=== PATIENT | male | born 1930 | race Caucasian/White ===

== ENCOUNTER 2016-08-28 13:46 | Emergency (ER) | payer OTHER ==
[~2016-08-28] VITALS: Ht 170.2 cm; Wt 84.0 kg
[~2016-08-28 13:46] MED LIST: AMOX500T PO; ATOR20TA PO; HYDR-3533 PO; METO25 PO; PRIN5TAB PO
[2016-08-28 13:53] VITALS: BP 145/77; PULSE 62; RESP 16; TEMP 97.6; O2SAT 95
[2016-08-28] MEDS ORDERED: METO50TA11 PO (16:01)
[2016-08-28] MEDS ORDERED: FISHCAP4 PO (16:01)
[2016-08-28] MEDS ORDERED: LISI-519 PO (16:01)
[2016-08-28] MEDS ORDERED: DICL1CAP4 PO (16:01)
[2016-08-28] MEDS ORDERED: ATOR20TA15 PO (16:01)
--- NOTE | 2016-08-28 16:35 | PD ---
HPI Chief Complaint: Musculoskeletal Complaint Time Seen by Provider: 16:35 Travel History International Travel<30 days: No Contact w/Intl Traveler<30days: No Traveled to known affect area: No History of Present Illness HPI 86-year-old male presents to the ED for evaluation of 4 day history of bilateral thigh pain. Onset after doing yard work 5 days ago. Right greater than left. Patient endorses pain with rising to a standing position. Patient denies numbness, tingling, weakness, limitations to range of motion of the lower extremities. 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 He states at that time his dose was changed from 80 mg to 20 mg. He states that he discontinue the medication altogether when the symptoms began. Treated today with a single dose of naproxen and icy hot with some improvement of his symptoms. Primary care is Marco Johnson, follow-up appointment scheduled early next week. PFSH Past Medical History High Cholesterol: Yes Coronary Artery Disease: Yes Diminished Hearing: No Genitourinary: Yes (HEMORRHOIDS) Hypertension: Yes Immunizations Current: No Past Surgical History Cardiac Surgery: Yes (ANGIOPLASTY, STENT ') Social History Alcohol Use: Yes (DAILY) Tobacco Use: No Substance Use: No Allergies-Medications (Allergen,Severity, Reaction): Coded Allergies: No Known Allergies (Verified , 08/28/16) Reported Meds & Prescriptions Reported Meds & Active Scripts Active Flexeril (Cyclobenzaprine HCl) 5 Mg Tab 5 Mg PO TID Naprosyn (Naproxen) 500 Mg Tab 500 Mg PO BID Reported Fish Oil + D3 (Fish Oil-Cholecalciferol) 1,200-1,000 Mg-Unit Cap 1 Cap PO DAILY Atorvastatin (Atorvastatin Calcium) 20 Mg Tab 20 Mg PO HS Zorvolex (Diclofenac) 35 Mg Cap 75 Mg PO BID Metoprolol Succinate ER 24 HR (Metoprolol Succinate) 50 Mg Tab 50 Mg PO DAILY Lisinopril 5 Mg Tab 5 Mg PO DAILY Review of Systems Except as stated in HPI: all other systems reviewed are Neg Physical Exam Narrative GENERAL: Well-nourished, well-developed white male in no acute distress. SKIN: Warm and dry. HEAD: Normocephalic. EYES: No scleral icterus. No injection or drainage. NECK: Supple, trachea midline. No JVD or lymphadenopathy. CARDIOVASCULAR: Regular rate and rhythm without murmurs, gallops, or rubs. 2+ DP and radial pulses bilaterally. RESPIRATORY: Breath sounds equal bilaterally. No accessory muscle use. GASTROINTESTINAL: Abdomen soft, non-tender, nondistended. MUSCULOSKELETAL: No cyanosis, or edema. No tenderness to palpation of bilateral quadriceps or hip flexors. 5/5 strength in bilateral lower extremities. BACK: Nontender without obvious deformity. No CVA tenderness. Data Data Last Documented VS Vital Signs Date Time Temp Pulse Resp B/P Pulse Ox O2 Delivery O2 Flow Rate FiO2 08/28/16 13:53 97.6 62 16 145/77 95 MDM Medical Decision Making Medical Screen Exam Complete: Yes Emergency Medical Condition: Yes Differential Diagnosis Medication side effect versus myopathy versus muscle strain versus muscle spasm versus overuse injury versus other Narrative Course 86-year-old male presents to the ED for evaluation of 4 day history of bilateral thigh pain. Onset after doing yard work 5 days ago. Right greater than left. Patient endorses pain with rising to a standing position. Patient denies numbness, tingling, weakness, limitations to range of motion of the lower extremities. 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 He states at that time his dose was changed from 80 mg to 20 mg. He states that he discontinue the medication altogether when the symptoms began. Treated today with a single dose of naproxen and icy hot with some improvement of his symptoms. Primary care is Marco Johnson, follow-up appointment scheduled early next week. Vitals reviewed. Physical exam reveals a well-appearing white male in no acute distress. Bilateral lower extremity exam reveals no tenderness to palpation, deficits of strength or loss of sensation. Abduction of the right hip flexor and left hip flexor elicits pain. This may be myopathy related to the atorvastatin, patient has discontinued use of the medication. I'll treat for muscle strain with anti-inflammatories and muscle relaxers. Patient is instructed to take the medication as prescribed, avoid driving while taking muscle relaxers, follow up with Dr. Johnson as planned. He indicated understanding of instructions and was amenable to plan of care. This patient is stable discharged home. Diagnosis Primary Impression: Muscle strain of lower extremity Qualified Code: S86.919A - Muscle strain of lower extremity, unspecified laterality, initial encounter Referrals: Primary Care Physician Patient Instructions: General Instructions, Muscle Strain (ED) Additional Instructions: Rest, hydrate. Take naproxen twice a day as prescribed. Take Flexeril up to 3 times a day as needed for muscle spasm. Do not drive while taking Flexeril. Return to normal, gentle activity as tolerated. No running, jumping activities for the next few weeks. Follow up with Dr. Johnson this week as planned. Return to the ED for any urgent or emergent medical condition. Med/Other Pt SpecificInfo: Prescription(s) given Scripts Cyclobenzaprine (Flexeril)5 Mg Tab5 Mg PO TID #12 TAB Ref 0 Prov:Fela Mendez DO 08/28/16 Naproxen (Naprosyn)500 Mg Bka024 Mg PO BID #10 TAB Ref 0 Prov:Fela Mendez DO 08/28/16 Disposition: 01 DISCHARGE HOME Condition: Stable Britney Perera Aug 28, 2016 16:35
[2016-08-28] MEDS ORDERED: CYCL5TAB PO (16:49)
[2016-08-28] MEDS ORDERED: NAPR500 PO (16:49)
== END 2016-08-28 17:00 | disposition home or self-care (01) ==
LOC: PHED 13:46 → PHEFT 17:00
DX: S86.919A Strain of unspecified muscle(s) and tendon(s) at lower leg level, unspecified leg, initial encounter (principal); E78.00 Pure hypercholesterolemia, unspecified; I25.10 Atherosclerotic heart disease of native coronary artery without angina pectoris; I10 Essential (primary) hypertension; F10.20 Alcohol dependence, uncomplicated; X58.XXXA Exposure to other specified factors, initial encounter; Y93.H2 Activity, gardening and landscaping
CPT/HCPCS: 99283

== ENCOUNTER 2017-03-22 16:37 | Emergency (ER) | payer OTHER ==
[~2017-03-22] VITALS: Ht 170.2 cm; Wt 85.4 kg
[~2017-03-22 16:37] MED LIST changes: -AMOX500T PO; -ATOR20TA PO; +ATOR20TA15 PO; +CYCL5TAB PO; +DICL1CAP4 PO; +FISHCAP4 PO; -HYDR-3533 PO; +LISI-519 PO; -METO25 PO; +METO50TA11 PO; +NAPR500 PO; -PRIN5TAB PO
[2017-03-22 16:45] VITALS: BP 208/77; PULSE 60; RESP 16; TEMP 97.7; O2SAT 96
[2017-03-22] MEDS ORDERED: DICL75TA PO (17:02)
[2017-03-22] MEDS ORDERED: METO25TA3 PO (17:02)
[2017-03-22] MEDS ORDERED: LISI-515 PO (17:02)
[2017-03-22] MEDS ORDERED: ASPI81CH CHEW (17:02)
[2017-03-22] MEDS ORDERED: GEMF600T PO (17:02)
[2017-03-22] MEDS ORDERED: MECL12.574 PO (17:02)
[2017-03-22] MEDS ORDERED: SODIUM CHLORID 0.9% 500 ML INJ 500 ML IV ONE (17:15)
[2017-03-22] MEDS ORDERED: SODIUM CHLORIDE 0.9% FLUSH 10 ML FLUSH IVF PRN (17:15)
[2017-03-22 17:17] VITALS: BP 187/76; PULSE 76; RESP 18
--- NOTE | 2017-03-22 18:05 | RADRPT ---
EXAM DATE/TIME: 03/22/2017 17:40 [facility] COMPARISON: No previous studies available for comparison. INDICATIONS : Lower extremity swelling for 1 week. MEDICAL HISTORY : Cardiovascular disease. SURGICAL HISTORY : Coronary artery stent. ENCOUNTER: Initial ACUITY: 1 week PAIN SCORE: 0/10 LOCATION: Bilateral chest FINDINGS: A single view of the chest demonstrates the lungs to be symmetrically aerated without evidence of mas s, infiltrate or effusion. The cardiomediastinal contours are unremarkable. Osseous structures are intact. CONCLUSION: 1. No acute cardiopulmonary disease. Braulio Blanchard MD on March 22, 2017 at 18:04 Board Certified Radiologist. This report was verified electronically.
[2017-03-22 18:21] VITALS: BP 199/73; PULSE 57; RESP 16; O2SAT 97
--- NOTE | 2017-03-22 18:48 | RADRPT ---
EXAM DATE/TIME: 03/22/2017 18:19 [facility] COMPARISON: No previous studies available for comparison. INDICATIONS : Right leg pain. MEDICAL HISTORY : Hypertension. Hypercholesterolemia. SURGICAL HISTORY : Angioplasty. ENCOUNTER: Initial ACUITY: 1 day PAIN SCORE: 3/10 LOCATION: Right leg. TECHNIQUE: Venous ultrasound of the leg was performed from the inguinal ligament to the proximal calf. Real-walker e, color Doppler and spectral tracing, compression and augmentation techniques were used. FINDINGS: There is normal compressibility of the deep venous system from the inguinal region to the proximal ca lf. No echogenic clot is seen in the lumen of the common femoral, femoral, popliteal, and posterior tibial veins. There is a normal response of the venous system to proximal and distal augmentation an d respiration. CONCLUSION: Normal examination. Yong Jewell MD on March 22, 2017 at 18:46 Board Certified Radiologist. This report was verified electronically.
--- NOTE | 2017-03-22 18:53 | PD ---
HPI Chief Complaint: Musculoskeletal Complaint Time Seen by Provider: 16:56 Travel History International Travel<30 days: No Contact w/Intl Traveler<30days: No Traveled to known affect area: No History of Present Illness HPI This is an 86-year-old male presents emergency department for evaluation of right ankle bruising and swelling. Patient states that he fell on his ankle a few days ago. He went to the [facility] today to be seen, he's had an x-ray of his ankle and states negative. But they wanted him to come over to exclude a DVT. Patient has not had any blood clots before no shortness of breath, denies any pain at this site and states symptoms been for the past few days. PFSH Past Medical History Hx Anticoagulant Therapy: Yes (asa 81mg) Cardiovascular Problems: Yes (htn on meds, stent x 1) High Cholesterol: Yes Coronary Artery Disease: Yes Diminished Hearing: No Genitourinary: Yes (HEMORRHOIDS) Hypertension: Yes Immunizations Current: No Tetanus Vaccination: < 5 Years Influenza Vaccination: Yes Past Surgical History Cardiac Surgery: Yes (ANGIOPLASTY, STENT 01') Social History Alcohol Use: Yes (DAILY) Tobacco Use: No Substance Use: No Allergies-Medications (Allergen,Severity, Reaction): Coded Allergies: No Known Allergies (Verified , 03/22/17) Reported Meds & Prescriptions Reported Meds & Active Scripts Active Reported Meclizine (Meclizine HCl) 12.5 Mg Tab 12.5 Mg PO TID PRN Metoprolol Tartrate 25 Mg Tab 25 Mg PO BID Lisinopril 20 Mg Tab 20 Mg PO DAILY Gemfibrozil 600 Mg Tab 600 Mg PO BIDAC Take 30 minutes prior to breakfast and dinner. Diclofenac Sodium DR (Diclofenac Sodium) 75 Mg Tabdr 75 Mg PO BID Aspirin 81 Mg Chew 81 Mg CHEW DAILY Fish Oil + D3 (Fish Oil-Cholecalciferol) 1,200-1,000 Mg-Unit Cap 1 Cap PO DAILY Review of Systems Except as stated in HPI: all other systems reviewed are Neg Physical Exam Narrative GENERAL: Well-developed well-nourished, quite pleasant 86-year-old male in no distress. SKIN: Focused skin assessment warm/dry. HEAD: Atraumatic. Normocephalic. EYES: Pupils equal and round. No scleral icterus. No injection or drainage. ENT: No nasal bleeding or discharge. Mucous membranes pink and moist. NECK: Trachea midline. No JVD. CARDIOVASCULAR: Regular rate and rhythm. No murmur appreciated. RESPIRATORY: No accessory muscle use. Clear to auscultation. Breath sounds equal bilaterally. GASTROINTESTINAL: Abdomen soft, non-tender, nondistended. Hepatic and splenic margins not palpable. MUSCULOSKELETAL: No obvious deformities. No clubbing. No cyanosis. There is a fair amount of edema of the right lower extremity distal to the knee, there is some bruising about the mid tibia and has started to progress with gravity down into the right heel. Pulses motor and sensory intact distally in all 4 extremities. Left lower extremity is atraumatic. NEUROLOGICAL: Awake and alert. No obvious cranial nerve deficits. Motor grossly within normal limits. Normal speech. PSYCHIATRIC: Appropriate mood and affect; insight and judgment normal. Data Data Last Documented VS Vital Signs Date Time Temp Pulse Resp B/P (MAP) Pulse Ox O2 Delivery O2 Flow Rate FiO2 03/22/17 19:16 210/87 (128) 03/22/17 18:21 57 16 97 Room Air 03/22/17 16:45 97.7 Orders Orders Electrocardiogram (03/22/17 17:13) Sodium Chloride 0.9% Flush (Ns Flush) (03/22/17 17:15) Sodium Chlorid 0.9% 500 Ml Inj (Ns 500 M (03/22/17 17:15) Us Leg Venous Doppler (03/22/17 17:28) Chest, Single Ap (03/22/17 ) MDM Medical Decision Making Medical Screen Exam Complete: Yes Emergency Medical Condition: Yes Differential Diagnosis DVT, hematoma, contusion. Narrative Course Patient roomed in emergency department, DVT study is been performed and shows no evidence of blood clot. Appears patient has had a small ecchymosis in the mid tibia which gravity has started to pull down into his foot. Discussed symptomatic management, recommended that if he still swollen in a week he should pursue a repeat ultrasound. He is stable for discharge. Diagnosis Primary Impression: Contusion of right lower extremity Qualified Codes: S80.11XA - Contusion of right lower leg, initial encounter Patient Instructions: General Instructions, RICE Therapy (ED) Additional Instructions: If you're still swollen and weak recommend he return to emergency department for repeat ultrasound, follow-up with primary care physician. Your ultrasound was negative for clot here. Disposition: 01 DISCHARGE HOME Condition: Stable William Stoner MD Mar 22, 2017 18:53
[2017-03-22 19:16] VITALS: BP 210/87
--- NOTE | 2017-03-23 10:26 | EKG ---
Date Performed: 03/22/2017 Time Performed: 17:20:23 PTAGE: 86 years EKG: SINUS BRADYCARDIA WITH FIRST DEGREE AV BLOCK MARKED LEFT AXIS DEVIATION ABNORMAL ECG NO PREVIOUS TRACING DOCTOR: Matt Haile Interpretating Date/Time 03/23/2017 10:24:56
== END 2017-03-22 19:18 | disposition home or self-care (01) ==
LOC: PHED 16:37
DX: S80.11XA Contusion of right lower leg, initial encounter (principal); W19.XXXA Unspecified fall, initial encounter; E78.00 Pure hypercholesterolemia, unspecified; I10 Essential (primary) hypertension; I25.10 Atherosclerotic heart disease of native coronary artery without angina pectoris; Z79.82 Long term (current) use of aspirin; Z95.5 Presence of coronary angioplasty implant and graft
CPT/HCPCS: 71010; 93005; 93971

== ENCOUNTER → 2017-08-05 | Outpatient (CLI) | payer OTHER ==
[~2017-08-05] MED LIST changes: +ACET-822 PO; +APIX5TAB PO; +ASPI-516 CHEW; +ASPI1CHW4 CHEW; -ATOR20TA15 PO; +BACT800T5 PO; +CALCTAB19 PO; +COMMODE 3-IN-11 MIS; -CYCL5TAB PO; -DICL1CAP4 PO; +DICL75TA PO; +DILT240C44 PO; +GEMF600T PO; +HYDR-3583 PO; +LISI-515 PO; -LISI-519 PO; +MECL12.574 PO; +METO25TA3 PO; -METO50TA11 PO; -NAPR500 PO; +PHEN0.4T PO; +SAW450CA2 PO; +TAMS5CAP PO; +WALKER/ADULT/FO1 MIS
== END ==
LOC: CPRE 11:30
PROVIDERS: ATTEND Orthopaedic Surgery Orthopaedic Trauma
DX: M79.609 Pain in unspecified limb (principal); Z79.01 Long term (current) use of anticoagulants

== ENCOUNTER 2017-08-09 08:30 | Inpatient (IN) | payer OTHER, MEDICARE ==
[~2017-08-09] VITALS: Ht 167.6 cm; Wt 77.9 kg
[~2017-08-09 08:30] MED LIST changes: -ACET-822 PO; -APIX5TAB PO; -ASPI1CHW4 CHEW; -BACT800T5 PO; -CALCTAB19 PO; -COMMODE 3-IN-11 MIS; -DILT240C44 PO; -HYDR-3583 PO; -MECL12.574 PO; -PHEN0.4T PO; -TAMS5CAP PO; -WALKER/ADULT/FO1 MIS
[2017-08-23] MEDS ORDERED: CHLORHEXIDINE GLUCONATE 4% SOLN 120 ML BTL TOPICAL SCH (06:15)
[2017-08-23] MEDS ORDERED: POVIDONE IODINE 5% (ANTISEPSIS KIT) 4 APPLICATIONS EACH NARE PRN (06:15)
[2017-08-23] MEDS ORDERED: FAMOTIDINE 20 MG/2 ML VIAL IV PRN (06:15)
[2017-08-23] MEDS ORDERED: SODIUM CHLORIDE 0.9% IV SCH (06:15)
[2017-08-23] MEDS ORDERED: DEXAMETHASONE SOD PHOS 20 MG/5 ML VIAL IV PRN (06:15)
[2017-08-23] MEDS ORDERED: GABAPENTIN 300 MG CAP PO PRN (06:15)
[2017-08-23] MEDS ORDERED: SODIUM CHLORID 0.9% 500 ML IV PRN (06:15)
[2017-08-23] MEDS ORDERED: METOPROLOL TARTRATE 25 MG TAB PO PRN (06:15)
[2017-08-23] MEDS ORDERED: ONDANSETRON HCL 4 MG/2 ML VIAL IV PUSH PRN (06:15)
[2017-08-23] MEDS ORDERED: LACTATED RINGER'S 1000 ML IV PRN (06:15)
[2017-08-23] MEDS ORDERED: CELECOXIB 200 MG CAP PO PRN (06:15)
[2017-08-23] MEDS ORDERED: TRANEXAMIC ACID IV SCH (06:15)
[2017-08-23] MEDS ORDERED: ceFAZolin 2 GM PREMIX 50 ML IV SCH (06:15)
[2017-08-23] MEDS ORDERED: CHLORHEXIDINE GLUCONATE 2 % 1 PACK (2 CLOTHS) TOPICAL PRN (06:15)
[2017-08-23] MEDS ORDERED: VANCOMYCIN 1000 MG/NS 250 ML (for <70 kg) IV SCH ×2 (06:15)
[2017-08-23] MEDS ORDERED: ACET-822 PO (07:16)
[2017-08-23] MEDS: ACETAMINOPHEN 1000 MG/100 ML 100 ML IV PRN ×2 (07:20→11:04)
[2017-08-23] MEDS ORDERED: WALKER/ADULT/FO1 MIS (09:30)
[2017-08-23] MEDS ORDERED: BUPIVACAINE LIPOSO PF 1.3% INJ 20 ML, BUPIVACAINE-EPI PF 0.25% INJ 20 ML in SODIUM CHLO... IRRIGATION SCH (09:30)
[2017-08-23] MEDS ORDERED: HYDR-3583 PO (09:30)
[2017-08-23] MEDS ORDERED: ASPI1CHW4 CHEW (09:30)
[2017-08-23] MEDS ORDERED: COMMODE 3-IN-11 MIS (09:30)
[2017-08-23] MEDS ORDERED: CALCTAB19 PO (09:30)
[2017-08-23 10:23] LABS: BICARBONATE 27.2 MEQ/L (21.0-32.0); CREATININE 1.34 MG/DL (0.60-1.30)
[2017-08-23] MEDS ORDERED: GENTAMICIN SULFATE 80 MG/2 ML VIAL IRRIGATION ONE (11:03)
--- NOTE | 2017-08-23 11:55 | PD.OP ---
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 Surgeon: Frandy Cruz Operations Staff Specialist Security(s): RAPHAEL Valle PA-C The surgical procedure was assisted by my physician technician assistant. My P.A. presence was necessary throughout this case for the manipulation and positioning of the surgical extremity. My P.A. was assisting me throughout the duration of this procedure. The skill set of a physician technician assistant was medically necessary to complete this procedure. During the surgical case the surgical aide was working at the back table and the physician technician assistant was directly assisting me. Operation and Findings: PLAN OF ACTIVITY Weight bear as tolerated. DRAINS: 7-mm BRYANT drain. IMPLANTS USED DePuy Corail size [13 high offset stem with a size [50] Saint Mary Gription cup, [ 50/32] Altrx poly liner, and a [32+8 metal head. DETAILS OF PROCEDURE: This patient has a long history of hip pain. Patient was found to have severe osteoarthritis secondary to congenital hip dysplasia. The patient had radiographic evidence of joint space narrowing with [id number] arthritis and osteophytes around the acetabulum as well as the femoral head. There was also some cystic changes. The patient failed conservative treatment with pain medications, anti-inflammatories, physical therapy, assistive devices including a cane, as well as therapeutic injection of the hip. Patient's hip arthritis was limiting his ability to ambulate and perform activities of daily living. The patient wished to proceed with surgery and informed consent was obtained. Operative site was marked. I discussed both posterior approach and anterior approach with the patient and decision was made for anterior approach. Patient was brought to OR and placed on OR table. IV sedation and general anesthesia was administered by anesthesiologist. Patient positioned on a Elisa table and was given IV antibiotics. Time-out procedure was performed. The hip and thigh were prepped with alcohol followed by Hibiclens. The thigh was draped in the usual sterile fashion. Clean Air Suite was used for this procedure. The procedure began with a 5-inch incision over the anterolateral thigh. Subcutaneous tissue was dissected with Bovie. The fascia over the tensa fasciae latae was incised. Care was taken to avoid injury to the lateral femoral cutaneous nerve. The tensor muscle was retracted laterally. Sartorius was retracted medially. Retractors were now placed. The reflected head of the rectus is now elevated. A capsulotomy was performed over the anterior head capsule. There was significant discoloration of the capsule as well as a thick bloody drainage inside the hip. Stat frozen section and cell count were sent to pathology. Frozen section was negative for acute inflammation. Gram stain was negative. Sutures were placed to help retract the capsule. At this point the femoral head and neck were identified. With soft tissue protected, oscillating saw was used to make a cut through the femoral neck, the femoral head was now removed. At this point attention was turned to preparation of the acetabulum. The labrum was excised. The acetabulum was sequentially reamed up to size [50]. A Saint Mary multi hole cup was now placed. Fluoroscopy was used to aid in identification of appropriate version. Cup was fully impacted and found to have excellent fit. 2 screws were now placed. Fluoroscopy was used to confirm screw placement. The liner was now impacted into the cup. At this point the hip was externally rotated. A hook was placed around the proximal femur. The capsule was released off the lateral and medial femur. The hip was now extended and adducted. Retractors were placed around the proximal femur to allow for exposure. A box osteotome was used to remove the lateral cortex of the femoral neck. A broach was used to help lateralize the prosthesis. Canal finder was used to create a path down the canal. Next, the canal was sequentially broached up to size []. This was found to be an excellent fit. Calcar planer was placed. A standard head was placed, and the hip was reduced. The hip was found to have excellent stability with good range of motion. The leg lengths were measured under fluoroscopy and found to be equal compared to preoperatively. Trial broach was removed. The Corail stem was opened. Stem was fully impacted into the proximal femur in appropriate version. The femoral head was placed. The hip was again reduced. Fluoroscopy confirmed excellent alignment of prosthesis. The wound was thoroughly irrigated and capsule was closed with #1 Vicryl. The fascia over the tensor fasciae muscle was closed with #1 Vicryl, subcutaneous tissue was closed with 3-0 Vicryl and the skin was closed with daniel and Dermabond skin closure. The capsule layers, muscle, and subcutaneous tissue were injected with a mixture of saline and bupivicaine. Dressings were applied. The patient was transferred to Recovery Room in stable condition. Frandy Cruz MD Aug 23, 2017 11:55
[2017-08-23] MEDS ORDERED: PROPOFOL 200 MG/20 ML AMP IV ONE (12:00)
[2017-08-23] MEDS ORDERED: LIDOCAINE HCL 1% PF 5 ML SYRINGE OTHER ONE (12:00)
[2017-08-23] MEDS ORDERED: ROCURONIUM INJ 50 MG/5 ML SYRINGE IV PUSH ONE (12:00)
[2017-08-23] MEDS ORDERED: NALOXONE HCL 0.4 MG/ML AMP IV PUSH PRN (12:00)
[2017-08-23] MEDS ORDERED: ACETAMINOPHEN/HYDROcodone 325 MG/10 MG TAB PO PRN (12:00)
[2017-08-23] MEDS ORDERED: ePHEDrine/NS 25 MG/5 ML SYRINGE IV ONE (12:00)
[2017-08-23] MEDS ORDERED: LABETALOL HCL 100 MG/20 ML VIAL IV ONE (12:00)
[2017-08-23] MEDS ORDERED: ONDANSETRON HCL 4 MG/2 ML VIAL IV ONE (12:00)
[2017-08-23] MEDS ORDERED: LACTATED RINGER'S 1000 ML INJ 3,000 ML IV ONE (12:00)
[2017-08-23] MEDS ORDERED: KETOROLAC TROMETHAMINE 30 MG/ML (IVP) VIAL IV PUSH SCH (12:00)
[2017-08-23] MEDS ORDERED: METOPROLOL TARTRATE 5 MG/5 ML VIAL IV ONE (12:00)
[2017-08-23] MEDS ORDERED: GLYCOPYRROLATE 1 MG/5 ML SYRINGE IV PUSH ONE (12:00)
[2017-08-23] MEDS ORDERED: NEOSTIGMINE 5 MG/5 ML SYRINGE IV PUSH ONE (12:00)
[2017-08-23] MEDS ORDERED: ACETAMINOPHEN/HYDROcodone 325 MG/7.5 MG TAB PO PRN (12:00)
[2017-08-23] MEDS ORDERED: PHENYLEPH/NS 1000 MCG/10 ML SYR IV ONE (12:00)
[2017-08-23 12:03] LABS: WBC, SYNOVIAL FLUID 900 /MM3 (0-200)
[2017-08-23] MEDS: LACTATED RINGER'S 1000 ML INJ 1,000 ML IV SCH ×2 (12:30→22:46)
[2017-08-23] MEDS ORDERED: MORPHINE SULFATE 4 MG/ML INJ IV PUSH PRN (12:30)
[2017-08-23] MEDS ORDERED: Post-op Orders (for Pharmacy) XX ONE (13:00)
[2017-08-23] MEDS: ACETAMINOPHEN 1000 MG/100 ML 100 ML IV SCH ×2 (13:00→23:58)
--- NOTE | 2017-08-23 13:03 | RADRPT ---
EXAM DATE/TIME: 08/23/2017 10:08 [facility] COMPARISON: No previous studies available for comparison. INDICATIONS : Right total hip replacement. MEDICAL HISTORY : None. SURGICAL HISTORY : None. ENCOUNTER: Initial ACUITY: 1 day PAIN SCORE: Non-responsive. LOCATION: Right Hip FINDINGS: Patient is status post placement of a right hip prosthesis. There is good position and alignment of t he prosthesis and bony structures. The bony structures are grossly intact. Postsurgical changes are p resent. CONCLUSION: Good position and alignment on this postoperative examination. Chris Silvestre MD on August 23, 2017 at 13:01 Board Certified Radiologist. This report was verified electronically.
--- NOTE | 2017-08-23 13:50 | RADRPT ---
EXAM DATE/TIME: 08/23/2017 12:37 [facility] COMPARISON: No previous studies available for comparison. INDICATIONS : Post op right hip arthroplasty. MEDICAL HISTORY : None. SURGICAL HISTORY : None. ENCOUNTER: Initial ACUITY: 1 day PAIN SCORE: Non-responsive. LOCATION: Right hip FINDINGS: Patient is status post placement of a right hip prosthesis. There is good position and alignment of t he prosthesis and bony structures. The bony structures are grossly intact. Postsurgical changes are p resent. There is prominent osteoarthritis at the left hip joint. CONCLUSION: Good position and alignment on this postoperative examination. Chris Silvestre MD on August 23, 2017 at 13:48 Board Certified Radiologist. This report was verified electronically.
[2017-08-23] MEDS: TRANEXAMIC ACID INJ 1,000 MG in SODIUM CHLORIDE 0.9% INJ 100 ML IV SCH ×2 (14:50→15:35)
[2017-08-23] MEDS: ceFAZolin 2 GM PREMIX 50 ML IV SCH ×2 (16:00→22:18)
[2017-08-23] MEDS ORDERED: KETOROLAC TROMETHAMINE 30 MG/ML (IVP) VIAL ONE (16:27)
[2017-08-23 17:00] VITALS: BP 121/81; PULSE 58; RESP 16; TEMP 96.1; O2SAT 100
[2017-08-23] MEDS: CELECOXIB 200 MG CAP PO SCH (19:57)
[2017-08-23] MEDS: ASPIRIN 81 MG CHEW TAB CHEW SCH (19:58)
[2017-08-23] MEDS: VANCOMYCIN INJ 1,000 MG in SODIUM CHLOR 0.9% 250 ML INJ 250 ML IV SCH (19:58)
[2017-08-23 20:35] VITALS: BP 94/51; PULSE 68; RESP 20; TEMP 97.8; O2SAT 98
[2017-08-24 00:20] VITALS: BP 110/56; PULSE 64; RESP 18; TEMP 97; O2SAT 98
[2017-08-24] MEDS: ceFAZolin 2 GM PREMIX 50 ML IV SCH (03:16)
[2017-08-24 04:00] VITALS: BP 126/58; PULSE 60; RESP 17; TEMP 97.5; O2SAT 98
--- NOTE | 2017-08-24 06:47 | PD.ORT.PN ---
Subjective Subjective Remarks POD 1 s/p right anterior JOHNNY doing well. reports that hip is feeling great. has been out of bed with walker. states difficulty urinating. had to be straight cathed earlier this AM Objective Vitals Vital Signs Date Time Temp Pulse Resp B/P (MAP) Pulse Ox O2 Delivery O2 Flow Rate FiO2 08/24/17 04:00 97.5 60 17 126/58 (80) 98 08/24/17 00:20 97.0 64 18 110/56 (74) 98 08/23/17 20:35 97.8 68 20 94/51 (65) 98 08/23/17 17:00 96.1 58 16 121/81 (94) 100 08/23/17 16:45 58 18 104/51 (68) 100 Nasal Cannula 2 08/23/17 16:00 57 18 103/51 (68) 100 Nasal Cannula 2 08/23/17 15:00 56 18 98/57 (71) 96 Nasal Cannula 2 08/23/17 14:00 54 18 121/54 (76) 99 Nasal Cannula 2 08/23/17 13:45 53 18 114/53 (73) 99 Nasal Cannula 2 08/23/17 13:30 16 08/23/17 13:30 57 18 111/51 (71) 100 Nasal Cannula 2 08/23/17 13:15 60 18 120/56 (77) 99 Nasal Cannula 2 08/23/17 13:00 56 18 113/55 (74) 97 Nasal Cannula 2 08/23/17 12:45 57 18 108/52 (70) 97 Nasal Cannula 2 08/23/17 12:30 64 18 110/58 (75) 96 Nasal Cannula 2 08/23/17 12:20 99.0 63 18 112/58 (76) 96 Nasal Cannula 2 08/23/17 07:30 97.5 61 20 149/68 (95) 99 I/O 08/23/17 08/23/17 08/23/17 08/24/17 08/24/17 08/24/17 07:00 15:00 23:00 07:00 15:00 23:00 Intake Total 2100 ml 990 ml 50 ml Output Total 3550 ml 800 ml 60 ml Balance -1450 ml 190 ml -10 ml Intake Oral 240 ml IV Total 2100 ml 750 ml 50 ml Output Urine Total 100 ml 800 ml 60 ml Estimated Blood Loss 450 ml Other 3000 ml Result Diagram: 08/23/17 0945 Imaging Last 24 hours Impressions Hip and Pelvis X-Ray 08/23/17 1147 Signed Impressions: Service Date/Time: Wednesday, August 23, 2017 12:37 - CONCLUSION: Good position and alignment on this postoperative examination. Chris Silvestre MD Objective Remarks RLE: moderate bloody drainage over central bandage. otherwise clean and dry. neg ayesha. nvi Assessment & Plan Assessment and Plan 1) Right Anterior JOHNNY - POD 1 -work with therapy today -if doing well, and urinating regularly, possibly home today with [facility] -if struggling a little, ok to keep til tomorrow and plan for DC then -WBAT -if goes home today, change dressing before discharged. otherwise, maintain til tomorrow,. -f/u with Nikhil or PA in 2 weeks Zi Hines PA/Sap Sd Analyst PA Aug 24, 2017 06:47
[2017-08-24 07:22] LABS: HEMATOCRIT 26.9 % (39.0-51.0); HEMOGLOBIN 9.5 GM/DL (13.0-17.0)
[2017-08-24 08:00] VITALS: BP 111/54; PULSE 67; RESP 18; TEMP 97; O2SAT 98
[2017-08-24] MEDS: VANCOMYCIN INJ 1,000 MG in SODIUM CHLOR 0.9% 250 ML INJ 250 ML IV SCH (09:50)
[2017-08-24] MEDS: CELECOXIB 200 MG CAP PO SCH ×2 (09:51→19:30)
[2017-08-24] MEDS: ASPIRIN 81 MG CHEW TAB CHEW SCH ×2 (09:51→19:30)
[2017-08-24] MEDS: ACETAMINOPHEN 1000 MG/100 ML 100 ML IV SCH ×2 (11:50→23:39)
[2017-08-24 11:58] VITALS: BP 130/53; PULSE 80; RESP 18; TEMP 96.7; O2SAT 94
[2017-08-24] MEDS: LACTATED RINGER'S 1000 ML INJ 1,000 ML IV SCH (13:15)
[2017-08-24 16:00] VITALS: BP 157/93; PULSE 79; RESP 18; TEMP 98.6; O2SAT 99
[2017-08-24] MEDS: ACETAMINOPHEN/HYDROcodone 325 MG/5 MG TAB PO PRN (18:23)
[2017-08-24] MEDS: DOCUSATE SODIUM 100 MG CAP PO SCH (19:29)
[2017-08-24 20:00] VITALS: BP 138/60; PULSE 76; RESP 18; TEMP 99; O2SAT 94
[2017-08-25] VITALS: BP 113/58; PULSE 75; RESP 15; TEMP 98.9; O2SAT 97
[2017-08-25] MEDS: LACTATED RINGER'S 1000 ML INJ 1,000 ML IV SCH ×2 (01:45→14:15)
[2017-08-25 04:00] VITALS: BP 150/68; PULSE 85; RESP 15; TEMP 98.1; O2SAT 96
--- NOTE | 2017-08-25 07:40 | PD.ORT.PN ---
Subjective Subjective Remarks Resting comfortably no new complaints. [place] was reinserted yesterday due to urinary issues. Objective Vitals Vital Signs Date Time Temp Pulse Resp B/P (MAP) Pulse Ox O2 Delivery O2 Flow Rate FiO2 08/25/17 04:00 98.1 85 15 150/68 (95) 96 08/25/17 00:00 98.9 75 15 113/58 (76) 97 08/24/17 20:00 99.0 76 18 138/60 (86) 94 08/24/17 16:00 98.6 79 18 157/93 (114) 99 08/24/17 11:58 96.7 80 18 130/53 (78) 94 08/24/17 08:00 97.0 67 18 111/54 (73) 98 I/O 08/24/17 08/24/17 08/24/17 08/25/17 08/25/17 08/25/17 07:00 15:00 23:00 07:00 15:00 23:00 Intake Total 530 ml 2533 ml 300 ml Output Total 60 ml 200 ml 1800 ml 1400 ml Balance 470 ml 2333 ml -1500 ml -1400 ml Intake Oral 480 ml 480 ml 300 ml IV Total 50 ml 2053 ml Output Urine Total 60 ml 200 ml 1800 ml 1400 ml # Voids 2 # Bowel Movements 0 0 Result Diagram: 08/24/17 0659 08/23/17 0945 Imaging Last 24 hours Impressions Hip and Pelvis X-Ray 08/23/17 1147 Signed Impressions: Service Date/Time: Wednesday, August 23, 2017 12:37 - CONCLUSION: Good position and alignment on this postoperative examination. Chris Silvestre MD Objective Remarks Right lower extremity: Clean dry dressing intact. Minimal swelling. No drainage. Mild tenderness with rotation of hip. Assessment & Plan Assessment and Plan 1) Right Anterior JOHNNY - POD 2 -work with therapy today -Discontinue Israel -1 dose of Flomax -WBAT -Once Israel was removed and he is able to urinate without any discomfort or issues we will continue to work toward home discharge. If he is continuing to have urinary symptoms or complaints we will plan on a consult to urology due to his BPH,. -f/u with Nikhil or RADHA in 2 weeks Ryan Couch Jr. Aug 25, 2017 07:40
[2017-08-25 08:00] VITALS: BP 119/71; PULSE 87; RESP 18; TEMP 99.7; O2SAT 97
[2017-08-25] MEDS ORDERED: TAMSULOSIN HCL 0.4 MG CAP PO ONE (08:00)
[2017-08-25] MEDS: ASPIRIN 81 MG CHEW TAB CHEW SCH (08:52)
[2017-08-25] MEDS: DOCUSATE SODIUM 100 MG CAP PO SCH (08:53)
[2017-08-25] MEDS: CELECOXIB 200 MG CAP PO SCH (08:53)
[2017-08-25] MEDS: ACETAMINOPHEN/HYDROcodone 325 MG/5 MG TAB PO PRN (08:54)
[2017-08-25 12:00] VITALS: BP 107/53; PULSE 75; RESP 18; TEMP 98.2; O2SAT 97
[2017-08-25 16:00] VITALS: BP 147/73; PULSE 90; RESP 18; TEMP 98.6; O2SAT 98
[2017-08-25] MEDS ORDERED: TAMS5CAP PO (17:14)
--- NOTE | 2017-08-25 18:02 | MB ---
cc: Sedrick Rivera MD DATE OF CONSULT: 08/25/2017 REASON FOR CONSULTATION: Acute postoperative urinary retention. HISTORY OF PRESENT ILLNESS: The patient is an 87-year-old male with a history of BPH who underwent a right total hip arthroplasty on 08/23/2017. Following the procedure, his catheter was removed but he was unable to urinate. He had a catheter inserted and removed several times for failed void trials with the final time earlier this morning. He has voided in small amounts but does not feel he is completely emptying his bladder. He denies prior episodes of urinary retention but he does have significant lower urinary tract symptoms including nocturia 4-5 times, postvoid dribbling and a weak stream. He usually takes Saw Wh[place], which helps but he says he stopped it 2 weeks ago prior to his surgery. Denies hematuria, dysuria or incontinence. Denies a history of kidney stones, urinary tract infections, or family history of prostate cancer. He has not seen a urologist in the past. He denies abdominal pain, flank pain, fevers or chills or nausea. PAST MEDICAL HISTORY: Significant for cataracts, coronary artery disease, hemorrhoids, BPH, arthritis, myocardial infarction. PAST SURGICAL HISTORY: Total right hip replacement, angioplasty x 2. SOCIAL HISTORY: Denies smoking, alcohol or drugs. FAMILY HISTORY: Denies urolithiasis, genitourinary malignancies. MEDICATIONS: Include Colace, aspirin, Saw Whiting. REVIEW OF SYSTEMS: See HPI, all other systems reviewed otherwise are negative. PHYSICAL EXAMINATION: VITAL SIGNS: Temperature 98.2, pulse 75, respiratory rate 18, blood pressure 107/53, satting 97% on room air. GENERAL: He is alert and oriented x 3, no apparent distress, positive, cooperative gentleman who appears his stated age. HEENT: Head is normocephalic, atraumatic. Eyes: No scleral icterus. Extraocular muscles intact. No bleeding from his nose. SKIN: No ulcers or rashes. Cool and dry. No lesions seen. NECK: Supple, trachea is midline. LUNGS: Clear to auscultation bilaterally. No wheezes, rhonchi or rales. HEART: Regular rate and rhythm without murmurs, gallops or rubs. ABDOMEN: Soft, but obese, nontender, nondistended, positive bowel sounds. GENITOURINARY: Penis is uncircumcised. Testes descended bilaterally. Normal in size and consistency. RECTAL EXAM: No indicated. EXTREMITIES: Nontender. No clubbing, cyanosis or edema. NEUROLOGIC: Cranial nerves II through XII intact. Strength 5/5 in all 4 extremities. LABORATORY STUDIES: Hemoglobin 9.5, hematocrit 26.9. Sodium 136, potassium 4.8, chloride 104, bicarb 27.2, BUN 45, creatinine 1.34. IMAGING STUDIES: No relevant imaging studies. ASSESSMENT AND PLAN: The patient is an 87-year-old male with history of benign prostatic hyperplasia, lower urinary tract symptoms who is status post a right hip arthoplasty and presents with current postoperative urinary retention. PLAN: Recommend reinserting the Israel catheter and leaving it in place for 1 week and then we will void trial as outpatient. We will start him on Flomax 0.4 mg b.i.d. From a urology standpoint, it is okay to discharge home with Israel catheter. Thank you for this consultation. Case was discussed with the patient and the nurse. Sedrick Rivera MD EMF/MARIAH , 05:19 PM , 06:00 PM
== END 2017-08-25 19:28 | disposition home health service (06) | DRG 470 ==
LOC: HSDI 08-23 05:11 → N06A 08-23 16:53
PROVIDERS: ADMIT Orthopaedic Surgery Orthopaedic Trauma; ATTEND Orthopaedic Surgery Orthopaedic Trauma
PROC: 0SR902A Replacement of Right Hip Joint with Metal on Polyethylene Synthetic Substitute, Uncemented, Open Approach (ICD-10-PCS; principal; 2017-08-23 09:36)
PROC: 0T9B70Z Drainage of Bladder with Drainage Device, Via Natural or Artificial Opening (ICD-10-PCS; 2017-08-24)
DX: M16.11 Unilateral primary osteoarthritis, right hip (principal); I10 Essential (primary) hypertension; G89.29 Other chronic pain; Q65.89 Other specified congenital deformities of hip; N40.1 Benign prostatic hyperplasia with lower urinary tract symptoms; R33.8 Other retention of urine; R35.1 Nocturia; I25.10 Atherosclerotic heart disease of native coronary artery without angina pectoris; Z95.5 Presence of coronary angioplasty implant and graft
CPT/HCPCS: 73501; 73502; 76000; 80048; 85014; 85018; 86850; 86900; 86901; 87015; 87070; 87102; 87116; 87205; 87206; 88305; 88311; 88331; 89051; C1776; C9290; J0131; J0690; J1100; J1580; J1885; J2370; J2405; J2710; J3010; J3370; J7050; J7120

== ENCOUNTER 2017-08-27 09:52 | Inpatient (IN) | payer OTHER, MEDICARE ==
[~2017-08-27] VITALS: Ht 170.2 cm; Wt 81.3 kg
[~2017-08-27 09:52] MED LIST changes: +ACET-822 PO; -ASPI-516 CHEW; +ASPI1CHW4 CHEW; +CALCTAB19 PO; +COMMODE 3-IN-11 MIS; -DICL75TA PO; +HYDR-3583 PO; +TAMS5CAP PO; +WALKER/ADULT/FO1 MIS
[2017-08-27 11:13] VITALS: BP 116/57; PULSE 57; RESP 20; TEMP 99.3; O2SAT 100
--- NOTE | 2017-08-27 11:36 | PD ---
HPI Chief Complaint: Syncope/Near-Syncope Time Seen by Provider: 11:16 Travel History International Travel<30 days: No Contact w/Intl Traveler<30days: No Traveled to known affect area: No History of Present Illness HPI 87-year-old male presents to the emergency department for evaluation of syncopal episode 2 this morning. Patient states that he went to the bathroom using his walker this morning to get cleaned up. He states that all of a sudden he felt overwhelmingly weak so he was able to get to the toilet where he sat down. His son came in and stated that he had a syncopal episode for approximately 10 seconds. He was trying to get his blood pressure before he passed out, but was unable to. He called 911 and the paramedics came. Upon arrival of paramedics, they sat him down in a chair where he had another syncopal episode. The patient had recent hip replacement surgery done on August 23, 2017. He states that he is not currently on any anticoagulants. He reports history of hypertension, hyperlipidemia, cardiac stent. Patient denies any headache. No fevers or chills. No chest pain or shortness of breath. No abdominal pain. No nausea, vomiting, diarrhea. He is currently on hydrocodone after having his hip replacement, but states he has only had 3 doses since having the surgery. Patient does complain of having constipation since the surgery. Patient denies any weakness at this time. No exacerbating or alleviating factors. Moderate severity. 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) Past Surgical History Body Medical Devices: STENT IN HEART X1 Cardiac Surgery: Yes (ANGIOPLASTY X 2, STENT 05') Eye Surgery: Yes (CATARACT RIGHT EYE) Oral Surgery: No Other Surgery: Yes Social History Alcohol Use: No Tobacco Use: No Substance Use: No Allergies-Medications (Allergen,Severity, Reaction): Coded Allergies: codeine (Verified Allergy, Severe, 08/27/17) tadalafil (Verified Allergy, Intermediate, facial redness, 08/27/17) Reported Meds & Prescriptions Reported Meds & Active Scripts Active Calcium 600+D 200 (Calcium Carbonate-Vitamin D) 600-200 Mg-Unit Tab 1 Tab PO BID Aspirin 81 Low Dose (Aspirin) 81 Mg Chew 81 Mg CHEW BID Hydrocodone-Acetaminophen 10-325 mg Tab 1 Tab PO Q4H PRN Reported Tylenol Extra Strength (Acetaminophen) 500 Mg Tablet 1 Tab PO Q8HR PRN Metoprolol Tartrate 25 Mg Tab 25 Mg PO BID Lisinopril 20 Mg Tab 20 Mg PO BID Gemfibrozil 600 Mg Tab 600 Mg PO BIDAC Take 30 minutes prior to breakfast and dinner. Fish Oil + D3 (Fish Oil-Cholecalciferol) 1,200-1,000 Mg-Unit Cap 1 Cap PO DAILY Review of Systems Except as stated in HPI: all other systems reviewed are Neg Physical Exam Narrative GENERAL: Well-nourished, well-developed elderly male patient, afebrile. Patient is alert and oriented to person, place, time. SKIN: Focused skin assessment warm/dry. Patient has dressing to right hip. HEAD: Normocephalic. Atraumatic. EYES: No scleral icterus. No injection or drainage. PERRLA. EOM intact. ENT: Mucosa pink and moist. No erythema or exudates. No uvular edema. No uvular , palatal, or tonsillar deviation. Airway patent. Nasal turbinates appear normal without nasal blood, purulent drainage or septal hematoma. Bilateral tympanic membranes are clear without erythema or perforation. NECK: Supple, trachea midline. No JVD or lymphadenopathy. CARDIOVASCULAR: Regular rate, irregular rhythm without murmurs, gallops, or rubs. Bilateral radial and pedal pulses 2+. RESPIRATORY: Breath sounds equal bilaterally. No accessory muscle use. Lungs sounds clear to auscultation. GASTROINTESTINAL: Abdomen soft, non-tender, nondistended. No abdominal tenderness to palpation. MUSCULOSKELETAL: No cyanosis, or edema. No calf tenderness or edema. Bilateral upper extremity strength 5/5. Patient unable to lift right leg off the bed due to recent surgery. Left lower extremity 5/5. All extremities are neurovascularly intact. BACK: Nontender without obvious deformity. No CVA tenderness. NEUROLOGICAL: Awake and alert. Cranial nerves II through XII intact. Motor and sensory grossly within normal limits. Five out of 5 muscle strength in all muscle groups. Normal speech. Finger to nose is normal bilaterally. Unable to complete solution due to recent surgery. Data Data Last Documented VS Vital Signs Date Time Temp Pulse Resp B/P (MAP) Pulse Ox O2 Delivery O2 Flow Rate FiO2 08/27/17 13:58 83 18 121/58 (79) 97 Room Air 08/27/17 11:13 99.3 Orders Orders Electrocardiogram (08/27/17 ) Electrocardiogram (08/27/17 11:32) Complete Blood Count With Diff (08/27/17 11:32) Comprehensive Metabolic Panel (08/27/17 11:32) Magnesium (Mg) (08/27/17 11:32) Ckmb (Isoenzyme) Profile (08/27/17 11:32) Troponin I (08/27/17 11:32) Act Partial Throm Time (Ptt) (08/27/17 11:32) Prothrombin Time / Inr (Pt) (08/27/17 11:32) Urinalysis - C+S If Indicated (08/27/17 11:32) Chest, Single Ap (08/27/17 11:32) Ct Brain W/O Iv Contrast(Rout) (08/27/17 11:32) Ecg Monitoring (08/27/17 11:32) Iv Access Insert/Monitor (08/27/17 11:32) Oximetry (08/27/17 11:32) Sodium Chloride 0.9% Flush (Ns Flush) (08/27/17 11:45) Orthostatic Vital Signs (08/27/17 11:32) Thyroid Stimulating Hormone (08/27/17 11:32) Sodium Chlorid 0.9% 500 Ml Inj (Ns 500 M (08/27/17 11:45) Ct Pulmonary Angiogram (08/27/17 ) CKMB (08/27/17 11:45) CKMB% (08/27/17 11:45) Sodium Chlorid 0.9% 500 Ml Inj (Ns 500 M (08/27/17 12:45) Iohexol 350 Inj (Omnipaque 350 Inj) (08/27/17 13:50) Admit Order (Ed Use Only) (08/27/17 14:28) Labs Laboratory Tests Test 08/27/17 11:45 08/27/17 11:50 White Blood Count 9.6 TH/MM3 Red Blood Count 3.55 MIL/MM3 Hemoglobin 10.6 GM/DL Hematocrit 30.4 % Mean Corpuscular Volume 85.6 FL Mean Corpuscular Hemoglobin 29.8 PG Mean Corpuscular Hemoglobin Concent 34.8 % Red Cell Distribution Width 13.9 % Platelet Count 266 TH/MM3 Mean Platelet Volume 7.4 FL Neutrophils (%) (Auto) 82.9 % Lymphocytes (%) (Auto) 8.0 % Monocytes (%) (Auto) 7.9 % Eosinophils (%) (Auto) 0.8 % Basophils (%) (Auto) 0.4 % Neutrophils # (Auto) 7.9 TH/MM3 Lymphocytes # (Auto) 0.8 TH/MM3 Monocytes # (Auto) 0.8 TH/MM3 Eosinophils # (Auto) 0.1 TH/MM3 Basophils # (Auto) 0.0 TH/MM3 CBC Comment DIFF FINAL Differential Comment Prothrombin Time 10.9 SEC Prothromb Time International Ratio 1.1 RATIO Activated Partial Thromboplast Time 25.0 SEC Blood Urea Nitrogen 21 MG/DL Creatinine 1.23 MG/DL Random Glucose 116 MG/DL Total Protein 6.3 GM/DL Albumin 2.8 GM/DL Calcium Level 8.5 MG/DL Magnesium Level 2.0 MG/DL Alkaline Phosphatase 63 U/L Aspartate Amino Transf (AST/SGOT) 15 U/L Alanine Aminotransferase (ALT/SGPT) 12 U/L Total Bilirubin 0.3 MG/DL Sodium Level 137 MEQ/L Potassium Level 3.9 MEQ/L Chloride Level 100 MEQ/L Carbon Dioxide Level 31.5 MEQ/L Anion Gap 6 MEQ/L Estimat Glomerular Filtration Rate 56 ML/MIN Total Creatine Kinase 102 U/L Creatine Kinase MB 0.5 NG/ML Troponin I LESS THAN 0.02 NG/ML Thyroid Stimulating Hormone 3rd Gen 1.250 uIU/ML Urine Color LIGHT-YELLOW Urine Turbidity CLEAR Urine pH 6.5 Urine Specific [place] 1.011 Urine Protein NEG mg/dL Urine Glucose (UA) NEG mg/dL Urine Ketones NEG mg/dL Urine Occult Blood SMALL Urine Nitrite NEG Urine Bilirubin NEG Urine Urobilinogen LESS THAN 2.0 MG/DL Urine Leukocyte Esterase SMALL Urine RBC 7 /hpf Urine WBC 2 /hpf Urine Mucus FEW /lpf Microscopic Urinalysis Comment CULT NOT INDICATED MDM Medical Decision Making Medical Screen Exam Complete: Yes Emergency Medical Condition: Yes Medical Record Reviewed: Yes Interpretation(s) CT brain CONCLUSION: No acute intracranial findings. CT pulmonary angiogram CONCLUSION: 1. No evidence of pulmonary embolus. 2. Mild basilar atelectasis. 3. Coronary artery calcification. 4. Small pericardial effusion. Chest x-ray - CONCLUSION: No acute cardiopulmonary disease identified. Differential Diagnosis Cardiac arrhythmia versus ACS versus electrolyte abnormality versus dehydration versus UTI versus anemia versus PE versus intracranial abnormality Narrative Course 87-year-old male presents to the emergency department for evaluation of syncope 2. Patient had recent right hip replacement surgery done 4 days ago. EKG shows atrial flutter/tachycardia, heart rate 70. CBC, CMP, Magnesium, CK, Troponin, TSH, PTT, PT/INR, UA are ordered and pending. Chest x-ray is ordered and pending. CT of the brain and CT pulmonary angiogram are ordered and pending. CBC shows anemia of hemoglobin 10.6, hematocrit 30.4. CMP shows BUN 21, glucose 116. Magnesium is 2.0. CK is 102. Troponin is less than 0.02. TSH is 1.250. Coags are unremarkable. UA is negative for acute infection. Chest x -ray shows no acute cardiopulmonary disease. CT of the brain shows no acute intracranial findings. CT pulmonary angiogram shows no evidence of pulmonary embolus, mild basilar atelectasis, coronary artery calcification, small pericardial effusion. Hospitalist will be paged for admission for syncope, new onset atrial flutter. Dr. Ross accepted admission. Diagnosis Primary Impression: Syncopal episodes Qualified Codes: R55 - Syncope and collapse Additional Impression: New onset atrial flutter Admitting Information Admitting Physician Requests: Day Friedman Aug 27, 2017 11:36
[2017-08-27] MEDS ORDERED: SODIUM CHLORIDE 0.9% FLUSH 10 ML FLUSH IVF PRN (11:45)
[2017-08-27] MEDS ORDERED: SODIUM CHLORID 0.9% 500 ML INJ 500 ML IV ONE ×2 (11:45→12:45)
[2017-08-27 12:20] LABS: BILIRUBIN, URINE NEG (NEG); BLOOD, URINE SMALL (NEG); GLUCOSE,URINE NEG (NEG); KETONE, URINE NEG (NEG); MUCUS URINE FEW /lpf (OCC); NITRITE,URINE NEG (NEG); PH, URINE 6.5 (5.0-8.5); URINE COLOR LIGHT-YELLOW (YELLW/STRAW); URINE LEUKOCYTE ESTERASE SMALL (NEG)
[2017-08-27 12:21] VITALS: BP_SYST 115; BP_SYST 119; BP_SYST 92; BP_DIAS 53; BP_DIAS 56; BP_DIAS 57; RESP 18; RESP 21; RESP 24
[2017-08-27 12:24] LABS: AUTOMATED NEUTROPHIL # 7.9 TH/MM3 (1.8-7.7); BASOPHIL % 0.4 % (0.0-2.0); EOSINOPHIL # 0.1 TH/MM3 (0-0.4); EOSINOPHIL % 0.8 % (0.0-4.0); HEMATOCRIT 30.4 % (39.0-51.0); HEMOGLOBIN 10.6 GM/DL (13.0-17.0); LYMPHOCYTE # 0.8 TH/MM3 (1.0-4.8); MEAN CELL VOLUME 85.6 FL (80.0-100.0); MEAN CORPUSCULAR HEMOGLOBIN 29.8 PG (27.0-34.0); MEAN CORPUSCULAR HGB CONC 34.8 % (32.0-36.0); MEAN PLATELET VOLUME 7.4 FL (7.0-11.0); MONO % 7.9 % (0.0-8.0); MONOCYTE # 0.8 TH/MM3 (0-0.9); NEUT % 82.9 % (16.0-70.0); PLATELET COUNT 266 TH/MM3 (150-450); RED BLOOD COUNT 3.55 MIL/MM3 (4.50-5.90); RED CELL DISTRIBUTION WIDTH 13.9 % (11.6-17.2); WHITE BLOOD COUNT 9.6 TH/MM3 (4.0-11.0)
[2017-08-27 12:27] LABS: INTERNATIONAL NORMALIZED RATIO 1.1 RATIO; PROTHROMBIN TIME - PATIENT 10.9 SEC (9.8-11.6)
[2017-08-27 12:33] LABS: ALBUMIN 2.8 GM/DL (3.4-5.0); ALT (GPT) 12 U/L (12-78); AST (GOT) 15 U/L (15-37); BICARBONATE 31.5 MEQ/L (21.0-32.0); BLOOD UREA NITROGEN 21 MG/DL (7-18); CALCIUM 8.5 MG/DL (8.5-10.1); CHLORIDE 100 MEQ/L (98-107); GLUCOSE,RANDOM 116 MG/DL (74-106); SODIUM (NA) 137 MEQ/L (136-145)
--- NOTE | 2017-08-27 12:35 | RADRPT ---
EXAM DATE/TIME: 08/27/2017 11:53 [facility] COMPARISON: CHEST SINGLE AP, March 22, 2017, 17:40. INDICATIONS : Weakness and chest pressure. MEDICAL HISTORY : Venous insufficiency. Hypertension. Hypercholesterolemia SURGICAL HISTORY : angioplasty ENCOUNTER: Initial ACUITY: 1 day PAIN SCORE: 2/10 LOCATION: Bilateral chest FINDINGS: Single AP view of the chest. The lungs are clear. Cardiomediastinal silhouette within normal limits. No evidence of pleural effusion or pneumothorax. CONCLUSION: No acute cardiopulmonary disease identified. Garo Maier MD on August 27, 2017 at 12:33 Board Certified Radiologist. This report was verified electronically.
[2017-08-27 12:44] LABS: ALKALINE PHOSPHATASE 63 U/L (45-117); CREATININE 1.23 MG/DL (0.60-1.30); GLOMERULAR FILTRATION RATE 56 ML/MIN (>89); TOTAL BILIRUBIN ADULT 0.3 MG/DL (0.2-1.0); TOTAL PROTEIN 6.3 GM/DL (6.4-8.2); TROPONIN I LESS THAN 0.02 NG/ML (0.02-0.05)
[2017-08-27] MEDS ORDERED: IOHEXOL 350 MG/ML 10 ML VIAL (for RAD DIAG) IVCONTRAST ONE (13:50)
[2017-08-27 13:58] VITALS: BP 121/58; PULSE 83; RESP 18; O2SAT 97
--- NOTE | 2017-08-27 14:06 | RADRPT ---
EXAM DATE/TIME: 08/27/2017 13:43 [facility] COMPARISON: No previous studies available for comparison. INDICATIONS : Shortness of breath today. IV CONTRAST: 75 cc Omnipaque 350 (iohexol) IV RADIATION DOSE: 18.10 CTDIvol (mGy) MEDICAL HISTORY : Hypertension. SURGICAL HISTORY : right hip replacement ENCOUNTER: Initial ACUITY: 1 day PAIN SCALE: 0/10 LOCATION: Bilateral chest TECHNIQUE: Volumetric scanning of the chest was performed using a pulmonary embolism protocol MIP images were re constructed. Using automated exposure control and adjustment of the mA and/or kV according to patien t size, radiation dose was kept as low as reasonably achievable to obtain optimal diagnostic quality images. DICOM format image data is available electronically for review and comparison. Follow-up recommendations for detected pulmonary nodules are based at a minimum on nodule size and pa tient risk factors according to Fleischner Society Guidelines. FINDINGS: PULMONARY ARTERIES: No filling defects are seen in the pulmonary arteries through the segmental level. LUNGS: Patchy atelectasis of the dependent portions of the lung bases. The lungs are otherwise clear. No con fluent consolidation or mass identified. PLEURAE: No evidence of pleural effusion or pneumothorax. MEDIASTINUM: Small pericardial effusion. No enlarged lymph nodes. Diffuse atherosclerotic disease of the aorta and coronary artery calcifications noted. Aortic diameter within normal limits. MUSCULOSKELETAL: Degenerative findings thoracic spine. MISCELLANEOUS: The visualized upper abdominal organs demonstrate no acute abnormality. CONCLUSION: 1. No evidence of pulmonary embolus. 2. Mild basilar atelectasis. 3. Coronary artery calcification. 4. Small pericardial effusion. Garo Maier MD on August 27, 2017 at 14:00 Board Certified Radiologist. This report was verified electronically.
--- NOTE | 2017-08-27 14:07 | RADRPT ---
EXAM DATE/TIME: 08/27/2017 13:38 [facility] COMPARISON: No previous studies available for comparison. INDICATIONS : Syncopal episodes today. RADIATION DOSE: 53.30 CTDIvol (mGy) MEDICAL HISTORY : Hypertension. SURGICAL HISTORY : right hip replacement ENCOUNTER: Initial ACUITY: 1 day PAIN SCALE: 0/10 LOCATION: Bilateral head TECHNIQUE: Multiple contiguous axial images were obtained of the head. Using automated exposure control and adj ustment of the mA and/or kV according to patient size, radiation dose was kept as low as reasonably a chievable to obtain optimal diagnostic quality images. DICOM format image data is available electro nically for review and comparison. FINDINGS: CEREBRUM: The ventricles are normal for age. No evidence of midline shift, mass lesion, hemorrhage or acute in farction. No extra-axial fluid collections are seen. POSTERIOR FOSSA: The cerebellum and brainstem are intact. The 4th ventricle is midline. The cerebellopontine angle i s unremarkable. EXTRACRANIAL: The visualized portion of the orbits is intact. SKULL: The calvaria is intact. No evidence of skull fracture. CONCLUSION: No acute intracranial findings. Garo Maier MD on August 27, 2017 at 14:04 Board Certified Radiologist. This report was verified electronically.
--- NOTE | 2017-08-27 14:34 | HHI.HP ---
HPI Service [facility] Primary Care Physician Marco Johnson M.D. Admission Diagnosis Syncopal Episode. Diagnoses: Chief Complaint: Syncopal episode. Travel History International Travel<30 Days: No Contact w/Intl Traveler <30 Da: No Traveled to Known Affected Are: No History of Present Illness This is a pleasant 87 y/o male who came to ER status post syncopal episodes, Patient states that he went to the bathroom using his walker this morning to get cleaned up. He states that all of a sudden he felt overwhelmingly weak so he was able to get to the toilet where he sat down. His son came in and stated that he had a syncopal episode for approximately 10 seconds. He was trying to get his blood pressure before he passed out, but was unable to. He called 911 and the paramedics came. Upon arrival of paramedics, they sat him down in a chair where he had another syncopal episode. The patient had recent hip replacement surgery done on August 23, 2017. He states that he is not currently on any anticoagulants. He reports history of hypertension, hyperlipidemia, cardiac stent. Patient denies any headache. No fevers or chills. No chest pain or shortness of breath. No abdominal pain. No nausea, vomiting, diarrhea. He is currently on hydrocodone after having his hip replacement, but states he has only had 3 doses since having the surgery. Patient does complain of having constipation since the surgery. Patient denies any weakness at this time. No exacerbating or alleviating factors. Moderate severity. he is been evaluated in Emergency Room bed C 31 and at this time completely asymptomatic. Review of Systems Constitutional: DENIES: Fever, Chills, Change in appetite Endocrine: DENIES: Heat/cold intolerance Eyes: DENIES: Blurred vision, Eye pain Cardiovascular: COMPLAINS OF: Syncope Except as stated in HPI: all other systems reviewed are Neg Past Family Social History Past Medical History Hyperlipidemia CAD Hemorrhoids BPH Hypertension Past Surgical History PCI with stent placement x 1 Angioplasty x2 and stent placement 2005 Cataract surgery right eye Reported Medications Reported Meds & Active Scripts Active Calcium 600+D 200 (Calcium Carbonate-Vitamin D) 600-200 Mg-Unit Tab 1 Tab PO BID Aspirin 81 Low Dose (Aspirin) 81 Mg Chew 81 Mg CHEW BID Hydrocodone-Acetaminophen 10-325 mg Tab 1 Tab PO Q4H PRN Reported Tylenol Extra Strength (Acetaminophen) 500 Mg Tablet 1 Tab PO Q8HR PRN Metoprolol Tartrate 25 Mg Tab 25 Mg PO BID Lisinopril 20 Mg Tab 20 Mg PO BID Gemfibrozil 600 Mg Tab 600 Mg PO BIDAC Take 30 minutes prior to breakfast and dinner. Fish Oil + D3 (Fish Oil-Cholecalciferol) 1,200-1,000 Mg-Unit Cap 1 Cap PO DAILY Allergies: Coded Allergies: codeine (Verified Allergy, Severe, 08/27/17) tadalafil (Verified Allergy, Intermediate, facial redness, 08/27/17) Active Ordered Medications Current Medications Medications (Trade) Dose Ordered Sig/Radha Route Start Time Stop Time Status Last Admin (Aspirin Chew) 81 mg BID CHEW 08/27/17 21:00 (Lopid) 600 mg BIDAC PO 08/27/17 16:00 (Oscal-D 250-125) 500 mg BID PO 08/27/17 21:00 (Vitamin D3) 1,000 units DAILY PO 08/28/17 09:00 Sodium Chloride 1,000 ml @ 100 mls/hr Q10H IV 08/27/17 15:00 (NS Flush) 2 ml UNSCH PRN IV FLUSH 08/27/17 14:45 (NS Flush) 2 ml BID IV FLUSH 08/27/17 21:00 (Tylenol) 650 mg Q4H PRN PO 08/27/17 14:45 (Zofran Inj) 4 mg Q6H PRN IVP 08/27/17 14:45 (Narcan Inj) 0.4 mg UNSCH PRN IV PUSH 08/27/17 14:45 (Senokot) 17.2 mg Q12H PRN PO 08/27/17 14:45 (Dulcolax Supp) 10 mg DAILY PRN RECTAL 08/27/17 14:45 (Lactulose Liq) 30 ml DAILY PRN PO 08/27/17 14:45 (Eliquis) 5 mg BID PO 08/27/17 21:00 UNV Family History Father at 56 years old from Acute coronary syndrome Mother with DM II Brother with DM II Social History Denies any toxic habits. Physical Exam Vital Signs Vital Signs Date Time Temp Pulse Resp B/P (MAP) Pulse Ox O2 Delivery O2 Flow Rate FiO2 08/27/17 13:58 83 18 121/58 (79) 97 Room Air 08/27/17 12:21 73 18 115/57 (76) 79 21 119/56 (77) 110 24 92/53 (66) 08/27/17 11:15 81 08/27/17 11:13 99.3 57 20 116/57 (76) 100 Physical Exam GENERAL: Well-nourished, well-developed elderly male patient, afebrile. Patient is alert and oriented to person, place, time. SKIN: Focused skin assessment warm/dry. Patient has dressing to right hip. HEAD: Normocephalic. Atraumatic. EYES: No scleral icterus. No injection or drainage. PERRLA. EOM intact. ENT: Mucosa pink and moist. No erythema or exudates. No uvular edema. No uvular , palatal, or tonsillar deviation. Airway patent. Nasal turbinates appear normal without nasal blood, purulent drainage or septal hematoma. Bilateral tympanic membranes are clear without erythema or perforation. NECK: Supple, trachea midline. No JVD or lymphadenopathy. CARDIOVASCULAR: Regular rate, irregular rhythm without murmurs, gallops, or rubs. Bilateral radial and pedal pulses 2+. RESPIRATORY: Breath sounds equal bilaterally. No accessory muscle use. Lungs sounds clear to auscultation. GASTROINTESTINAL: Abdomen soft, non-tender, nondistended. No abdominal tenderness to palpation. MUSCULOSKELETAL: No cyanosis, or edema. No calf tenderness or edema. Bilateral upper extremity strength 5/5. Patient unable to lift right leg off the bed due to recent surgery. Left lower extremity 5/5. All extremities are neurovascularly intact. BACK: Nontender without obvious deformity. No CVA tenderness. NEUROLOGICAL: Awake and alert. Cranial nerves II through XII intact. Motor and sensory grossly within normal limits. Five out of 5 muscle strength in all muscle groups. Normal speech. Finger to nose is normal bilaterally. Unable to complete solution due to recent surgery. Laboratory Laboratory Tests Test 08/27/17 11:45 08/27/17 11:50 White Blood Count 9.6 Red Blood Count 3.55 Hemoglobin 10.6 Hematocrit 30.4 Mean Corpuscular Volume 85.6 Mean Corpuscular Hemoglobin 29.8 Mean Corpuscular Hemoglobin Concent 34.8 Red Cell Distribution Width 13.9 Platelet Count 266 Mean Platelet Volume 7.4 Neutrophils (%) (Auto) 82.9 Lymphocytes (%) (Auto) 8.0 Monocytes (%) (Auto) 7.9 Eosinophils (%) (Auto) 0.8 Basophils (%) (Auto) 0.4 Neutrophils # (Auto) 7.9 Lymphocytes # (Auto) 0.8 Monocytes # (Auto) 0.8 Eosinophils # (Auto) 0.1 Basophils # (Auto) 0.0 CBC Comment DIFF FINAL Differential Comment Prothrombin Time 10.9 Prothromb Time International Ratio 1.1 Activated Partial Thromboplast Time 25.0 Blood Urea Nitrogen 21 Creatinine 1.23 Random Glucose 116 Total Protein 6.3 Albumin 2.8 Calcium Level 8.5 Magnesium Level 2.0 Alkaline Phosphatase 63 Aspartate Amino Transf (AST/SGOT) 15 Alanine Aminotransferase (ALT/SGPT) 12 Total Bilirubin 0.3 Sodium Level 137 Potassium Level 3.9 Chloride Level 100 Carbon Dioxide Level 31.5 Anion Gap 6 Estimat Glomerular Filtration Rate 56 Total Creatine Kinase 102 Creatine Kinase MB 0.5 Troponin I LESS THAN 0.02 Thyroid Stimulating Hormone 3rd Gen 1.250 Urine Color LIGHT-YELLOW Urine Turbidity CLEAR Urine pH 6.5 Urine Specific [place] 1.011 Urine Protein NEG Urine Glucose (UA) NEG Urine Ketones NEG Urine Occult Blood SMALL Urine Nitrite NEG Urine Bilirubin NEG Urine Urobilinogen LESS THAN 2.0 Urine Leukocyte Esterase SMALL Urine RBC 7 Urine WBC 2 Urine Mucus FEW Microscopic Urinalysis Comment CULT NOT INDICATED Result Diagram: 08/27/17 1145 08/27/17 1145 Imaging Last Impressions Head CT 08/27/17 1132 Signed Impressions: Service Date/Time: Sunday, August 27, 2017 13:38 - CONCLUSION: No acute intracranial findings. Garo Maier MD Chest X-Ray 08/27/17 1132 Signed Impressions: Service Date/Time: Sunday, August 27, 2017 11:53 - CONCLUSION: No acute cardiopulmonary disease identified. Garo Maier MD CT Angiography 08/27/17 0000 Signed Impressions: Service Date/Time: Sunday, August 27, 2017 13:43 - CONCLUSION: 1. No evidence of pulmonary embolus. 2. Mild basilar atelectasis. 3. Coronary artery calcification. 4. Small pericardial effusion. Garo Maier MD Caprini VTE Risk Assessment Caprini VTE Risk Assessment: Mod/High Risk (score >= 2) Caprini Risk Assessment Model Point Value = 1 Point Value = 2 Point Value = 3 Point Value = 5 Age 41-60 Minor surgery BMI > 25 kg/m2 Swollen legs Varicose veins or History of unexplained or recurrent spontaneous Oral contraceptives or hormone replacement Sepsis (< 1 month) Serious lung disease, including pneumonia (< 1 month) Abnormal pulmonary function Acute myocardial infarction Congestive heart failure (< 1 month) History of inflammatory bowel disease Medical patient at bed rest Age 61-74 Arthroscopic surgery Major open surgery (> 45 min) Laparoscopic surgery (> 45 min) Malignancy Confined to bed (> 72 hours) Immobilizing plaster cast Central venous access Age >= 75 History of VTE Family history of VTE Factor V Leiden Prothrombin [id number] Lupus anticoagulant Anticardiolipin antibodies Elevated serum homocysteine Heparin-induced thrombocytopenia Other congenital or acquired thrombophilia Stroke (< 1 month) Elective arthroplasty Hip, pelvis, or leg fracture Acute spinal cord injury (< 1 month) Prophylaxis Regimen Total Risk Factor Score Risk Level Prophylaxis Regimen 0-1 Low Early ambulation 2 Moderate Order ONE of the following: *Sequential Compression Device (SCD) *Heparin 5000 units SQ BID 3-4 Higher Order ONE of the following medications: *Heparin 5000 units SQ TID *Enoxaparin/Lovenox 40 mg SQ daily (WT < 150 kg, CrCl > 30 mL/min) *Enoxaparin/Lovenox 30 mg SQ daily (WT < 150 kg, CrCl > 10-29 mL/min) *Enoxaparin/Lovenox 30 mg SQ BID (WT < 150 kg, CrCl > 30 mL/min) AND/OR *Sequential Compression Device (SCD) 5 or more Highest Order ONE of the following medications: *Heparin 5000 units SQ TID (Preferred with Epidurals) *Enoxaparin/Lovenox 40 mg SQ daily (WT < 150 kg, CrCl > 30 mL/min) *Enoxaparin/Lovenox 30 mg SQ daily (WT < 150 kg, CrCl > 10-29 mL/min) *Enoxaparin/Lovenox 30 mg SQ BID (WT < 150 kg, CrCl > 30 mL/min) AND *Sequential Compression Device (SCD) Assessment and Plan Assessment and Plan 1. Syncopal episode, status post CT brain no acute intracranial findings, CT angiography no evidence of Pulmonary emboli Mild basilar atelectasis, Coronary artery calcification, Small pericardial effusion, CXR no acute Cardiopulmonary disease will continue Cardiac monitoring, Cardiac enzymes, and follow recommendations by thoracic medicine specialist. Orthostatic Vital signs, Lipid profile, hemoglobin A1C, Vitamin B12 and folate, Carotid Doppler, Echocardiogram. 2. new onset of Atrial Fibrillation, asked for Cardiology consult, on Metoprolol low dose. CHADS2-VASC score 3 awaiting for Echocardiogram will need to be on anticoagulation. 3. Hyperlipidemia continue Home medicines and follow Lipid profile 4. CAD by history with Status post Cardiac Cath 1993 and PCI with one stent placed in 2004. 5. BPH by history 6. Hypertension by history DVT prophylaxis with Lovenox. Code Status Full Code. Discussed Condition With [facility] Physician Certification 2 Midnight Certification Type: Admission for Inpatient Services Order for Inpatient Services The services are ordered in accordance with Medicare regulations or non- Medicare payer requirements, as applicable. In the case of services not specified as inpatient-only, they are appropriately provided as inpatient services in accordance with the 2-midnight benchmark. Estimated LOS (days): 3 days is the estimated time the patient will need to remain in the hospital, assuming treatment plan goals are met and no additional complications. Post-Hospital Plan: Not yet determined Abhijit Mcneill MD Aug 27, 2017 14:34
[2017-08-27] MEDS ORDERED: ONDANSETRON HCL 4 MG/2 ML VIAL IVP PRN (14:45)
[2017-08-27] MEDS ORDERED: BISACODYL 10 MG SUPP RECTAL PRN (14:45)
[2017-08-27] MEDS ORDERED: ACETAMINOPHEN 325 MG TAB PO PRN (14:45)
[2017-08-27] MEDS ORDERED: NALOXONE HCL 0.4 MG/ML AMP IV PUSH PRN (14:45)
[2017-08-27] MEDS ORDERED: LACTULOSE SYRUP 20 GM/30 ML CUP PO PRN (14:45)
[2017-08-27] MEDS ORDERED: SODIUM CHLORIDE 0.9% FLUSH 10 ML FLUSH IV FLUSH PRN (14:45)
[2017-08-27] MEDS ORDERED: SENNOSIDES 8.6 MG TAB PO PRN (14:45)
--- NOTE | 2017-08-27 14:51 | EKG ---
Date Performed: 08/27/2017 Time Performed: 11:33:25 PTAGE: 87 years EKG: Due to baseline artifact, underlying rhythm is unclear INTRAVENTRICULAR CONDUCTION DELAY AB NORMAL ECG I cannot accurately compare rhythm because of artifact PREVIOUS TRACING : 03/22/2017 17.20 DOCTOR: Portillo Mendoza Interpretating Date/Time 08/27/2017 14:49:32
[2017-08-27] MEDS ORDERED: HEPARIN SODIUM - SQ 10,000 UNITS/ML VIAL SQ SCH (15:00)
--- NOTE | 2017-08-27 15:52 | RADRPT ---
EXAM DATE/TIME: 08/27/2017 15:14 [facility] COMPARISON: No previous studies available for comparison. INDICATIONS : Syncope. MEDICAL HISTORY : Hypercholesterolemia. Hypertension. Thyroid nodules. Syncope. Coronary artery disease. Anticoagulan t therapy. BPH. Hemorrhoids. SURGICAL HISTORY : Angioplasty. Cataract surgery. Right hip replacement. ENCOUNTER: Initial ACUITY: 1 day PAIN SCORE: 0/10 LOCATION: Bilateral neck PEAK SYSTOLIC VELOCITIES (cm/sec): ICA/CCA RATIO: Right: 1.1 Left: 1.5 ICA: Right: 72.4 Left: 104.4 CCA: Right: 67.7 Left: 70.9 ECA: Right: 86.6 Left: 86.6 VERTEBRAL: Right: 63.4 antegrade Left: 50.4 antegrade Elevated flow velocities and ICA/CCA ratios have been found to correlate with increased degrees of vessel stenosis, calculated as percentage of diameter relative to a normal segment of distal ICA/CCA FINDINGS: RIGHT CAROTID: No significant stenosis is visualized. The waveforms are within normal limits. LEFT CAROTID: No significant stenosis is visualized. The waveforms are within normal limits. VERTEBRAL ARTERIES: Antegrade flow is seen in both vertebral arteries. MISCELLANEOUS: None. CONCLUSION: No evidence of hemodynamically significant carotid stenosis. Garo Maier MD on August 27, 2017 at 15:49 Board Certified Radiologist. This report was verified electronically.
[2017-08-27] MEDS: SODIUM CHLOR 0.9% 1000 ML INJ 1,000 ML IV SCH (16:52)
[2017-08-27] MEDS: GEMFIBROZIL 600 MG TAB PO SCH (16:52)
[2017-08-27] MEDS ORDERED: HEPARIN-D5W 25,000 U/250 ML 250 ML IV PRN (17:00)
[2017-08-27] MEDS ORDERED: HEPARIN SODIUM - IV 10,000 UNITS/10 ML VIAL IV PUSH ONE (17:00)
[2017-08-27] MEDS ORDERED: PILL SPLITTER OTHER PRN (17:45)
[2017-08-27 18:08] VITALS: BP 115/54
[2017-08-27 18:26] VITALS: BP 139/63; PULSE 85; RESP 20; TEMP 98.4; O2SAT 97
[2017-08-27 20:00] VITALS: BP 125/61; PULSE 74; PULSE 77; RESP 18; TEMP 97.8; O2SAT 97
[2017-08-27] MEDS: CALCIUM/VITAMIN D 250 MG/125 U TAB PO SCH (20:02)
[2017-08-27] MEDS: APIXABAN 5 MG TABLET PO SCH (20:02)
[2017-08-27] MEDS: METOPROLOL TARTRATE 25 MG TAB PO SCH (20:02)
[2017-08-27] MEDS: SODIUM CHLORIDE 0.9% FLUSH 10 ML FLUSH IV FLUSH SCH (20:03)
[2017-08-27] MEDS: ASPIRIN 81 MG CHEW TAB CHEW SCH (20:03)
[2017-08-27 20:47] LABS: TROPONIN I 0.02 NG/ML (0.02-0.05)
[2017-08-27] MEDS ORDERED: HEPARIN SODIUM - IV 10,000 UNITS/10 ML VIAL IV PUSH PRN ×2 (23:00)
[2017-08-28] VITALS (7 sets, daily range): BP systolic 106–139; BP diastolic 55–75; PULSE 68–91; RESP 18–20; TEMP 97.8–98.7; O2SAT 92–98
[2017-08-28 01:08] LABS: AUTOMATED NEUTROPHIL # 4.3 TH/MM3 (1.8-7.7); BASOPHIL % 0.5 % (0.0-2.0); EOSINOPHIL # 0.2 TH/MM3 (0-0.4); EOSINOPHIL % 2.4 % (0.0-4.0); HEMATOCRIT 27.7 % (39.0-51.0); HEMOGLOBIN 9.8 GM/DL (13.0-17.0); LYMPH % 18.8 % (9.0-44.0); LYMPHOCYTE # 1.2 TH/MM3 (1.0-4.8); MEAN CELL VOLUME 85.2 FL (80.0-100.0); MEAN CORPUSCULAR HEMOGLOBIN 30.2 PG (27.0-34.0); MEAN CORPUSCULAR HGB CONC 35.4 % (32.0-36.0); MEAN PLATELET VOLUME 7.1 FL (7.0-11.0); MONOCYTE # 0.6 TH/MM3 (0-0.9); NEUT % 68.3 % (16.0-70.0); PLATELET COUNT 252 TH/MM3 (150-450); RED BLOOD COUNT 3.25 MIL/MM3 (4.50-5.90); RED CELL DISTRIBUTION WIDTH 13.8 % (11.6-17.2); WHITE BLOOD COUNT 6.3 TH/MM3 (4.0-11.0)
[2017-08-28 01:23] LABS: BICARBONATE 32.1 MEQ/L (21.0-32.0); BLOOD UREA NITROGEN 19 MG/DL (7-18); CALCIUM 8.6 MG/DL (8.5-10.1); CHLORIDE 103 MEQ/L (98-107); GLUCOSE,RANDOM 111 MG/DL (74-106); SODIUM (NA) 141 MEQ/L (136-145)
--- NOTE | 2017-08-28 01:45 | MB ---
cc: Alexis Daniels MD DATE OF CONSULT: 08/27/2017 REASON FOR CONSULTATION: Syncope and new onset atrial fibrillation. HISTORY OF PRESENT ILLNESS: The patient is a very pleasant 87-year-old gentleman with a history of a cardiac stent placed in 2004. The patient had just gotten out of the hospital for hip surgery but he presented with 2 syncopal or very near syncopal episodes. He was brought to the hospital and found to be in a rate controlled atrial fibrillation. He is currently feeling better with no chest pain, shortness of breath light-headedness or dizziness. PAST MEDICAL HISTORY: 1. Coronary artery disease, status post remote stents. 2. BPH. 3. Hypertension. 4. Hyperlipidemia. CURRENT MEDICATIONS: Aspirin 81 mg daily, gemfibrozil 600 mg b.i.d., subcutaneous heparin. ALLERGIES: CODEINE AND TADALAFIL. PHYSICAL EXAMINATION: VITAL SIGNS: Temperature 99.3, pulse 83, respiratory rate 18, BP 121/58, satting 97% on room air. GENERAL: A pleasant gentleman in no distress. NECK: No JVD. LUNGS: Clear to auscultation bilaterally. CARDIOVASCULAR: Irregularly irregular with limited regular rate, no significant murmur appreciated. ABDOMEN: Benign. EXTREMITIES: No edema. LABORATORY DATA: White count 9.6, hemoglobin 30.4, platelets 266. Sodium 137, potassium 3.9, chloride 100, bicarb 31.5, BUN 21, creatinine 1.23, glucose 116, troponin is negative x 1. EKG showed a rate controlled atrial fibrillation with minor nonspecific ST changes and left axis deviation. Telemetry also shows a generally rate controlled atrial fibrillation. IMPRESSION: 1. Syncope. The patient had a syncopal episode which may have been orthostatic though certainly with atrial fibrillation there may have been an arrhythmia issue as well. He is currently not on any atrioventricular kayleigh agent and his rate seems well controlled so sick sinus syndrome may be a possibility. He will be kept on telemetry and echocardiogram will be performed and will get carotid Dopplers. 2. Atrial fibrillation. The patient is currently is asymptomatic rate controlled atrial fibrillation. I discussed the anticoagulation with him and he is not a fall risk and has only had the episode which brought him to the hospital, but otherwise has not had any falls. I will begin Eliquis 5 mg b.i.d. given his adequate renal function and weight. I will hold off on rate control for now. An echocardiogram is pending. Further recommendations based on the above. Thank you again for the opportunity to participate in this patient's care. MD NELSON Patrick/ , 04:43 PM , 01:43 AM
[2017-08-28 01:48] LABS: CHOLESTEROL 154 MG/DL (120-200); CHOLESTEROL/ HDL RATIO 3.49 RATIO; CREATININE 1.06 MG/DL (0.60-1.30); FOLATE 13.9 NG/ML (3.1-17.5); FREE T4 1.08 NG/DL (0.76-1.46); GLOMERULAR FILTRATION RATE 66 ML/MIN (>89); HDL CHOLESTEROL 44.1 MG/DL (40.0-60.0); LDL CHOLESTEROL 84 MG/DL (0-99); TRIGLYCERIDES 131 MG/DL (42-150); TROPONIN I 0.02 NG/ML (0.02-0.05)
[2017-08-28] MEDS: SODIUM CHLOR 0.9% 1000 ML INJ 1,000 ML IV SCH ×2 (03:43→16:19)
[2017-08-28] MEDS: METOPROLOL TARTRATE 25 MG TAB PO SCH ×2 (09:00→20:22)
[2017-08-28] MEDS: GEMFIBROZIL 600 MG TAB PO SCH ×2 (09:00→16:18)
[2017-08-28] MEDS: ASPIRIN 81 MG CHEW TAB CHEW SCH ×2 (09:01→20:22)
[2017-08-28] MEDS: APIXABAN 5 MG TABLET PO SCH ×2 (09:01→20:23)
[2017-08-28] MEDS: CALCIUM/VITAMIN D 250 MG/125 U TAB PO SCH ×2 (09:01→20:23)
[2017-08-28] MEDS: SODIUM CHLORIDE 0.9% FLUSH 10 ML FLUSH IV FLUSH SCH ×2 (09:01→20:24)
[2017-08-28] MEDS: CHOLECALCIFEROL (VIT D3) 1000 UNIT TAB PO SCH (09:02)
--- NOTE | 2017-08-28 10:36 | HHI.PR ---
Subjective Remarks Follow-up syncope, atrial fibrillation, hypertension. Patient states that he had an episode of nausea this morning, but denies lightheadedness or dizziness. He denies chest pain or dyspnea. He has been ambulating with a walker. Objective Vitals Vital Signs Date Time Temp Pulse Resp B/P (MAP) Pulse Ox O2 Delivery O2 Flow Rate FiO2 08/28/17 08:00 98.6 68 20 109/55 (73) 95 08/28/17 08:00 68 08/28/17 07:15 Room Air 08/28/17 04:00 97.8 76 18 116/67 (83) 97 08/28/17 04:00 83 08/28/17 04:00 Room Air 08/28/17 00:00 73 08/28/17 00:00 Room Air 08/28/17 00:00 97.9 79 18 106/65 (79) 95 08/27/17 20:00 Room Air 08/27/17 20:00 77 08/27/17 20:00 97.8 74 18 125/61 (82) 97 08/27/17 18:26 98.4 85 20 139/63 (88) 97 08/27/17 18:08 89 18 115/54 (74) 98 Nasal Cannula 08/27/17 13:58 83 18 121/58 (79) 97 Room Air 08/27/17 12:21 73 18 115/57 (76) 79 21 119/56 (77) 110 24 92/53 (66) 08/27/17 11:15 81 08/27/17 11:13 99.3 57 20 116/57 (76) 100 I/O 08/27/17 08/27/17 08/27/17 08/28/17 08/28/17 08/28/17 07:00 15:00 23:00 07:00 15:00 23:00 Intake Total 500 ml 500 ml 1000 ml Output Total 1900 ml Balance 500 ml 500 ml 1000 ml -1900 ml Intake IV Total 500 ml 500 ml 1000 ml Output Urine Total 1900 ml # Bowel Movements 1 Result Diagram: 08/28/17 0038 08/28/17 0038 Imaging Last Impressions Head CT 08/27/17 1132 Signed Impressions: Service Date/Time: Sunday, August 27, 2017 13:38 - CONCLUSION: No acute intracranial findings. Garo Maier MD Chest X-Ray 08/27/17 1132 Signed Impressions: Service Date/Time: Sunday, August 27, 2017 11:53 - CONCLUSION: No acute cardiopulmonary disease identified. Garo Maier MD Carotid Artery Ultrasound 08/27/17 0000 Signed Impressions: Service Date/Time: Sunday, August 27, 2017 15:14 - CONCLUSION: No evidence of hemodynamically significant carotid stenosis. Garo Maier MD CT Angiography 08/27/17 0000 Signed Impressions: Service Date/Time: Sunday, August 27, 2017 13:43 - CONCLUSION: 1. No evidence of pulmonary embolus. 2. Mild basilar atelectasis. 3. Coronary artery calcification. 4. Small pericardial effusion. Garo Maier MD Objective Remarks General: Elderly male in no acute distress. Sitting up in a chair. Heart: Irregular rhythm. Lungs: Clear to auscultation bilaterally. No wheezes, rales, or rhonchi. Breathing is nonlabored. Abdomen: Soft, nontender, nondistended. Extremities: No lower extremity edema. PIERRE frye. Psych: Alert and oriented. Procedures None Urinary Catheter: Yes Assessment to: Continue [place] insert reason: Obstruction/Retention Vascular Central Line Catheter: No A/P Assessment and Plan 1. Syncopal episode: Appreciate cardiology recommendations. Monitor on telemetry. Echocardiogram ordered. Metoprolol held this morning. Lisinopril on hold as well. 2. Atrial fibrillation: New onset. Appreciate cardiology recommendations. Low -dose metoprolol ordered, but held this morning secondary to low blood pressure. Started on Eliquis for anticoagulation by cardiology. 3. Hyperlipidemia: Continue gemfibrozil. 4. Coronary artery disease: Patient had stent placement in 2004. No chest pain. 5. DVT prophylaxis: Eliquis. Discharge Planning Pending further cardiac workup, cardiology clearance. Jitendra Gray MD Aug 28, 2017 10:36
[2017-08-28] MEDS: TAMSULOSIN HCL 0.4 MG CAP PO SCH ×2 (11:45→20:21)
--- NOTE | 2017-08-28 12:35 | PD.CARD.PN ---
Subjective Subjective Remarks Some RVR this am; seeming to correlate with using the bathroom w/ associated dizziness Objective Medications Current Medications Medications (Trade) Dose Ordered Sig/Radha Route Start Time Stop Time Status Last Admin (Aspirin Chew) 81 mg BID CHEW 08/27/17 21:00 08/28/17 09:01 (Lopid) 600 mg BIDAC PO 08/27/17 16:00 08/28/17 09:00 (Oscal-D 250-125) 500 mg BID PO 08/27/17 21:00 08/28/17 09:01 (Vitamin D3) 1,000 units DAILY PO 08/28/17 09:00 08/28/17 09:02 Sodium Chloride 1,000 ml @ 75 mls/hr [id number] IV 08/27/17 15:00 08/28/17 03:43 (NS Flush) 2 ml UNSCH PRN IV FLUSH 08/27/17 14:45 (NS Flush) 2 ml BID IV FLUSH 08/27/17 21:00 08/28/17 09:01 (Tylenol) 650 mg Q4H PRN PO 08/27/17 14:45 (Zofran Inj) 4 mg Q6H PRN IVP 08/27/17 14:45 (Narcan Inj) 0.4 mg UNSCH PRN IV PUSH 08/27/17 14:45 (Senokot) 17.2 mg Q12H PRN PO 08/27/17 14:45 (Dulcolax Supp) 10 mg DAILY PRN RECTAL 08/27/17 14:45 (Lactulose Liq) 30 ml DAILY PRN PO 08/27/17 14:45 08/27/17 23:49 (Eliquis) 5 mg BID PO 08/27/17 21:00 08/28/17 09:01 (Lopressor) 12.5 mg Q12HR PO 08/27/17 21:00 08/27/17 20:02 (Pill Splitter) 1 ea UNSCH PRN OTHER 08/27/17 17:45 (Flomax) 0.4 mg Q12HR PO 08/28/17 10:45 08/28/17 11:45 Vital Signs / I&O Vital Signs Date Time Temp Pulse Resp B/P (MAP) Pulse Ox O2 Delivery O2 Flow Rate FiO2 08/28/17 08:00 98.6 68 20 109/55 (73) 95 08/28/17 08:00 68 08/28/17 07:15 Room Air 08/28/17 04:00 97.8 76 18 116/67 (83) 97 08/28/17 04:00 83 08/28/17 04:00 Room Air 08/28/17 00:00 73 08/28/17 00:00 Room Air 08/28/17 00:00 97.9 79 18 106/65 (79) 95 08/27/17 20:00 Room Air 08/27/17 20:00 77 08/27/17 20:00 97.8 74 18 125/61 (82) 97 08/27/17 18:26 98.4 85 20 139/63 (88) 97 08/27/17 18:08 89 18 115/54 (74) 98 Nasal Cannula 08/27/17 13:58 83 18 121/58 (79) 97 Room Air I/O 08/27/17 08/27/17 08/27/17 08/28/17 08/28/17 08/28/17 07:00 15:00 23:00 07:00 15:00 23:00 Intake Total 500 ml 500 ml 1000 ml Output Total 1900 ml Balance 500 ml 500 ml 1000 ml -1900 ml Intake IV Total 500 ml 500 ml 1000 ml Output Urine Total 1900 ml # Bowel Movements 1 Physical Exam GENERAL: This is a well-nourished, well-developed patient, in no apparent distress. CARDIOVASCULAR: Regular rate and irregular rhythm without murmurs, gallops, or rubs. RESPIRATORY: Clear to auscultation. Breath sounds equal bilaterally. No wheezes , rales, or rhonchi. GASTROINTESTINAL: Abdomen soft, non-tender, nondistended. Normal, active bowel sounds MUSCULOSKELETAL: Extremities without clubbing, cyanosis, or edema. NEURO: Alert & Oriented x4 to person, place, time, situation. Moves all ext x4 Laboratory Laboratory Tests Test 08/27/17 19:17 08/28/17 00:38 Total Creatine Kinase 81 U/L 80 U/L Troponin I 0.02 NG/ML 0.02 NG/ML White Blood Count 6.3 TH/MM3 Red Blood Count 3.25 MIL/MM3 Hemoglobin 9.8 GM/DL Hematocrit 27.7 % Mean Corpuscular Volume 85.2 FL Mean Corpuscular Hemoglobin 30.2 PG Mean Corpuscular Hemoglobin Concent 35.4 % Red Cell Distribution Width 13.8 % Platelet Count 252 TH/MM3 Mean Platelet Volume 7.1 FL Neutrophils (%) (Auto) 68.3 % Lymphocytes (%) (Auto) 18.8 % Monocytes (%) (Auto) 10.0 % Eosinophils (%) (Auto) 2.4 % Basophils (%) (Auto) 0.5 % Neutrophils # (Auto) 4.3 TH/MM3 Lymphocytes # (Auto) 1.2 TH/MM3 Monocytes # (Auto) 0.6 TH/MM3 Eosinophils # (Auto) 0.2 TH/MM3 Basophils # (Auto) 0.0 TH/MM3 CBC Comment DIFF FINAL Differential Comment Blood Urea Nitrogen 19 MG/DL Creatinine 1.06 MG/DL Random Glucose 111 MG/DL Calcium Level 8.6 MG/DL Sodium Level 141 MEQ/L Potassium Level 4.0 MEQ/L Chloride Level 103 MEQ/L Carbon Dioxide Level 32.1 MEQ/L Anion Gap 6 MEQ/L Estimat Glomerular Filtration Rate 66 ML/MIN Triglycerides Level 131 MG/DL Cholesterol Level 154 MG/DL LDL Cholesterol 84 MG/DL HDL Cholesterol 44.1 MG/DL Cholesterol/HDL Ratio 3.49 RATIO Vitamin B12 Level 316 PG/ML Folate 13.9 NG/ML Free Thyroxine 1.08 NG/DL Imaging Last Impressions Head CT 08/27/171131 Signed Impressions: Service Date/Time: Sunday, August 27, 2017 13:38 - CONCLUSION: No acute intracranial findings. Garo Maier MD Chest X-Ray 08/27/171131 Signed Impressions: Service Date/Time: Sunday, August 27, 2017 11:53 - CONCLUSION: No acute cardiopulmonary disease identified. Garo Maier MD Carotid Artery Ultrasound 08/27/17 0000 Signed Impressions: Service Date/Time: Sunday, August 27, 2017 15:14 - CONCLUSION: No evidence of hemodynamically significant carotid stenosis. Garo Maier MD CT Angiography 08/27/17 0000 Signed Impressions: Service Date/Time: Sunday, August 27, 2017 13:43 - CONCLUSION: 1. No evidence of pulmonary embolus. 2. Mild basilar atelectasis. 3. Coronary artery calcification. 4. Small pericardial effusion. Garo Maier MD Assessment and Plan Problem List: (1) Atrial fibrillation ICD Codes: I48.91 - Unspecified atrial fibrillation Plan: On eliquis, added cardizem for better rate control (2) Syncopal episodes ICD Codes: R55 - Syncope and collapse Status: Acute Plan: unclear etiology; echo pending; added cardizem as above. Problem Qualifiers (1) Syncopal episodes: Qualified Codes: R55 - Syncope and collapse Alexis Daniels MD Aug 28, 2017 12:35
[2017-08-28] MEDS: DILTIAZEM HCL 30 MG TAB PO SCH ×3 (14:16→20:21)
[2017-08-29] VITALS (9 sets, daily range): BP systolic 110–132; BP diastolic 58–73; PULSE 67–90; RESP 17–19; TEMP 98–98.8; O2SAT 96–98
[2017-08-29] MEDS: SODIUM CHLOR 0.9% 1000 ML INJ 1,000 ML IV SCH ×2 (00:28→21:16)
[2017-08-29] MEDS: DILTIAZEM HCL 30 MG TAB PO SCH (09:16)
[2017-08-29] MEDS: CHOLECALCIFEROL (VIT D3) 1000 UNIT TAB PO SCH (09:16)
[2017-08-29] MEDS: ASPIRIN 81 MG CHEW TAB CHEW SCH ×2 (09:16→21:15)
[2017-08-29] MEDS: CALCIUM/VITAMIN D 250 MG/125 U TAB PO SCH ×2 (09:16→21:15)
[2017-08-29] MEDS: GEMFIBROZIL 600 MG TAB PO SCH ×2 (09:16→16:07)
[2017-08-29] MEDS: TAMSULOSIN HCL 0.4 MG CAP PO SCH ×2 (09:16→21:15)
[2017-08-29] MEDS: APIXABAN 5 MG TABLET PO SCH ×2 (09:16→21:16)
[2017-08-29] MEDS: METOPROLOL TARTRATE 25 MG TAB PO SCH ×2 (09:16→21:15)
[2017-08-29] MEDS: SODIUM CHLORIDE 0.9% FLUSH 10 ML FLUSH IV FLUSH SCH ×2 (09:20→21:00)
--- NOTE | 2017-08-29 09:33 | PD.CARD.PN ---
Subjective Subjective Remarks off tele, about to go to echo, good HR by exam; no cardiac complaints. Objective Medications Current Medications Medications (Trade) Dose Ordered Sig/Radha Route Start Time Stop Time Status Last Admin (Aspirin Chew) 81 mg BID CHEW 08/27/17 21:00 08/29/17 09:16 (Lopid) 600 mg BIDAC PO 08/27/17 16:00 08/29/17 09:16 (Oscal-D 250-125) 500 mg BID PO 08/27/17 21:00 08/29/17 09:16 (Vitamin D3) 1,000 units DAILY PO 08/28/17 09:00 08/29/17 09:16 Sodium Chloride 1,000 ml @ 75 mls/hr [id number] IV 08/27/17 15:00 08/29/17 00:28 (NS Flush) 2 ml UNSCH PRN IV FLUSH 08/27/17 14:45 (NS Flush) 2 ml BID IV FLUSH 08/27/17 21:00 08/29/17 09:20 (Tylenol) 650 mg Q4H PRN PO 08/27/17 14:45 (Zofran Inj) 4 mg Q6H PRN IVP 08/27/17 14:45 (Narcan Inj) 0.4 mg UNSCH PRN IV PUSH 08/27/17 14:45 (Senokot) 17.2 mg Q12H PRN PO 08/27/17 14:45 (Dulcolax Supp) 10 mg DAILY PRN RECTAL 08/27/17 14:45 (Lactulose Liq) 30 ml DAILY PRN PO 08/27/17 14:45 08/27/17 23:49 (Eliquis) 5 mg BID PO 08/27/17 21:00 08/29/17 09:16 (Lopressor) 12.5 mg Q12HR PO 08/27/17 21:00 08/29/17 09:16 (Pill Splitter) 1 ea UNSCH PRN OTHER 08/27/17 17:45 (Flomax) 0.4 mg Q12HR PO 08/28/17 10:45 08/29/17 09:16 (Cardizem) 30 mg QID PO 08/28/17 13:00 08/29/17 09:16 Vital Signs / I&O Vital Signs Date Time Temp Pulse Resp B/P (MAP) Pulse Ox O2 Delivery O2 Flow Rate FiO2 08/29/17 09:00 98.6 89 18 124/58 (80) 96 08/29/17 04:00 Room Air 08/29/17 04:00 98.0 67 17 110/58 (75) 96 08/29/17 04:00 83 08/29/17 00:00 Room Air 08/29/17 00:00 73 08/28/17 23:54 98.0 77 20 139/75 (96) 97 08/28/17 21:15 21 08/28/17 20:00 Room Air 08/28/17 20:00 82 08/28/17 20:00 98.4 78 18 116/68 (84) 92 08/28/17 16:00 98.7 84 20 126/64 (84) 98 08/28/17 16:00 81 08/28/17 12:00 84 08/28/17 12:00 97.9 91 20 113/55 (74) 93 I/O 08/28/17 08/28/17 08/28/17 08/29/17 08/29/17 08/29/17 07:00 15:00 23:00 07:00 15:00 23:00 Intake Total 1000 ml 400 ml Output Total 1900 ml 900 ml 1050 ml Balance 1000 ml -1900 ml -900 ml -650 ml Intake Oral 400 ml IV Total 1000 ml Output Urine Total 1900 ml 900 ml 1050 ml # Bowel Movements 1 0 Physical Exam GENERAL: This is a well-nourished, well-developed patient, in no apparent distress. CARDIOVASCULAR: Regular rate and irregular rhythm without murmurs, gallops, or rubs. RESPIRATORY: Clear to auscultation. Breath sounds equal bilaterally. No wheezes , rales, or rhonchi. GASTROINTESTINAL: Abdomen soft, non-tender, nondistended. Normal, active bowel sounds MUSCULOSKELETAL: Extremities without clubbing, cyanosis, or edema. NEURO: Alert & Oriented x4 to person, place, time, situation. Moves all ext x4 Laboratory GENERAL: This is a well-nourished, well-developed patient, in no apparent distress. CARDIOVASCULAR: Regular rate and irregular rhythm without murmurs, gallops, or rubs. RESPIRATORY: Clear to auscultation. Breath sounds equal bilaterally. No wheezes , rales, or rhonchi. GASTROINTESTINAL: Abdomen soft, non-tender, nondistended. Normal, active bowel sounds MUSCULOSKELETAL: Extremities without clubbing, cyanosis, or edema. NEURO: Alert & Oriented x4 to person, place, time, situation. Moves all ext x4 Imaging Last Impressions Head CT 08/27/17 1132 Signed Impressions: Service Date/Time: Sunday, August 27, 2017 13:38 - CONCLUSION: No acute intracranial findings. Garo Maier MD Chest X-Ray 08/27/17 1132 Signed Impressions: Service Date/Time: Sunday, August 27, 2017 11:53 - CONCLUSION: No acute cardiopulmonary disease identified. Garo Maier MD Carotid Artery Ultrasound 08/27/17 0000 Signed Impressions: Service Date/Time: Sunday, August 27, 2017 15:14 - CONCLUSION: No evidence of hemodynamically significant carotid stenosis. Garo Maier MD CT Angiography 08/27/17 0000 Signed Impressions: Service Date/Time: Sunday, August 27, 2017 13:43 - CONCLUSION: 1. No evidence of pulmonary embolus. 2. Mild basilar atelectasis. 3. Coronary artery calcification. 4. Small pericardial effusion. Garo Maier MD Assessment and Plan Problem List: (1) Atrial fibrillation ICD Codes: I48.91 - Unspecified atrial fibrillation Plan: On eliquis, increased cardizem for better rate control (2) Syncopal episodes ICD Codes: R55 - Syncope and collapse Status: Acute Plan: unclear etiology; echo pending; added cardizem as above. Assessment and Plan Dr. Gilman will follow tomorrow Problem Qualifiers (1) Syncopal episodes: Qualified Codes: R55 - Syncope and collapse Alexis Daniels MD Aug 29, 2017 09:33
[2017-08-29] MEDS: DILTIAZEM HCL 60 MG TAB PO SCH ×3 (12:31→21:15)
--- NOTE | 2017-08-29 12:46 | ECHRPT ---
Indication: ATRIAL FIB/FLUTTER CONCLUSIONS Normal left ventricular size. Moderate to severe concentric left ventricular hypertrophy. The left ventricular systolic function is normal with an estimated ejection fraction in the range of 55-60%. The left atrial size is [id number] dilated. The right atrial size is mildly dilated. No atrial level shunt is demonstrated by color flow Doppler interrogation. Trace mitral valve regurgitation. Aortic valve sclerosis is present. Mild aortic valve stenosis. There is trace tricuspid valve regurgitation. The estimated pulmonary arterial pressure is 41 mmHg. Mild pulmonary valve regurgitation. BP: 116 / 67 HR: 83 Rhythm: Atrial fibrillation, Atrial flut ter MEASUREMENTS (Male / Female) Normal Values Technical Quality:Fair 2D ECHO LV Diastolic Diameter PLAX 5.4 cm 4.2 - 5.9 / 3.9 - 5.3 cm LV Systolic Diameter PLAX 3.8 cm IVS Diastolic Thickness 1.6 cm 0.6 - 1.0 / 0.6 - 0.9 cm LVPW Diastolic Thickness 1.6 cm 0.6 - 1.0 / 0.6 - 0.9 cm LV Relative Wall Thickness 0.6 RV Internal Dim ED PLAX 2.7 cm LVOT Diameter 1.9 cm Aortic Root Diameter 2.8 cm LA Systolic Diameter LX 4.3 cm 3.0 - 4.0 / 2.7 - 3.8 cm M-MODE AV Cusp Separation MM 1.8 cm DOPPLER AV Peak Velocity 124.0 cm/s AV Peak Gradient 6.2 mmHg AV Mean Gradient 3.0 mmHg AV Velocity Time Integral 19.4 cm AI Peak Velocity 430.3 cm/s AI Peak Gradient 74.0 mmHg AI Pressure Half Time 507.5 ms LVOT Peak Velocity 100.8 cm/s LVOT Peak Gradient 4.1 mmHg LVOT Velocity Time Integral 15.8 cm AV Area Cont Eq vti 2.3 cm AV Area Cont Eq pk 2.3 cm Mitral E Point Velocity 92.5 cm/s LV E' Lateral Velocity 6.6 cm/s Mitral E to LV E' Lateral Ratio 14.0 LV E' Septal Velocity 5.9 cm/s Mitral E to LV E' Septal Ratio 15.5 TR Peak Velocity 297.5 cm/s TR Peak Gradient 35.4 mmHg Right Atrial Pressure 10.0 mmHg Pulmonary Artery Systolic Pressu 45.4 mmHg Right Ventricular Systolic Press 45.4 mmHg PV Peak Velocity 104.8 cm/s PV Peak Gradient 4.4 mmHg FINDINGS LEFT VENTRICLE Normal left ventricular size. Moderate to severe concentric left ventricular hypertrophy. The left ventricular systolic function is normal with an estimated ejection fraction in the range of 55-60%. RIGHT VENTRICLE Normal right ventricular size and systolic function. LEFT ATRIUM The left atrial size is lwes-nf-pzqjeilqat dilated. RIGHT ATRIUM The right atrial size is mildly dilated. ATRIAL SEPTUM No atrial level shunt is demonstrated by color flow Doppler interrogation. AORTA The aortic root and proximal ascending aorta are normal in size on limited imaging. MITRAL VALVE Trace mitral valve regurgitation. AORTIC VALVE Aortic valve sclerosis is present. Mild aortic valve stenosis. TRICUSPID VALVE There is trace tricuspid valve regurgitation. The estimated pulmonary arterial pressure is 41 mmHg. PULMONARY VALVE Mild pulmonary valve regurgitation. VESSELS The inferior vena cava is normal in size. PERICARDIUM No pericardial effusion. Matt Haile MD, FACC (Electronically Signed) Final Date:29 August 2017 12:45
--- NOTE | 2017-08-29 14:35 | HHI.PR ---
Subjective Remarks Follow-up syncope, atrial fibrillation. Patient states that he feels good today. Denies chest pain, dyspnea, lightheadedness. No further episodes reported. Objective Vitals Vital Signs Date Time Temp Pulse Resp B/P (MAP) Pulse Ox O2 Delivery O2 Flow Rate FiO2 08/29/17 13:38 81 08/29/17 12:35 98.4 85 18 131/73 (92) 96 08/29/17 09:00 98.6 89 18 124/58 (80) 96 08/29/17 08:00 96 Room Air 21 08/29/17 08:00 90 08/29/17 04:00 Room Air 08/29/17 04:00 98.0 67 17 110/58 (75) 96 08/29/17 04:00 83 08/29/17 00:00 Room Air 08/29/17 00:00 73 08/28/17 23:54 98.0 77 20 139/75 (96) 97 08/28/17 21:15 21 08/28/17 20:00 Room Air 08/28/17 20:00 82 08/28/17 20:00 98.4 78 18 116/68 (84) 92 08/28/17 16:00 98.7 84 20 126/64 (84) 98 08/28/17 16:00 81 I/O 08/28/17 08/28/17 08/28/17 08/29/17 08/29/17 08/29/17 07:00 15:00 23:00 07:00 15:00 23:00 Intake Total 1000 ml 400 ml 480 ml Output Total 1900 ml 900 ml 1050 ml 550 ml Balance 1000 ml -1900 ml -900 ml -650 ml -70 ml Intake Oral 400 ml 480 ml IV Total 1000 ml Output Urine Total 1900 ml 900 ml 1050 ml 550 ml # Bowel Movements 1 0 Result Diagram: 08/28/178 08/28/178 Imaging Last Impressions Head CT 08/27/171131 Signed Impressions: Service Date/Time: Sunday, August 27, 2017 13:38 - CONCLUSION: No acute intracranial findings. Garo Maier MD Chest X-Ray 08/27/171131 Signed Impressions: Service Date/Time: Sunday, August 27, 2017 11:53 - CONCLUSION: No acute cardiopulmonary disease identified. Garo Maier MD Carotid Artery Ultrasound 08/27/17 0000 Signed Impressions: Service Date/Time: Sunday, August 27, 2017 15:14 - CONCLUSION: No evidence of hemodynamically significant carotid stenosis. Garo Maier MD CT Angiography 08/27/17 0000 Signed Impressions: Service Date/Time: Sunday, August 27, 2017 13:43 - CONCLUSION: 1. No evidence of pulmonary embolus. 2. Mild basilar atelectasis. 3. Coronary artery calcification. 4. Small pericardial effusion. Garo Maier MD Objective Remarks General: Elderly male in no acute distress. Sitting up in a chair. Heart: Irregular rhythm. Lungs: Clear to auscultation bilaterally. No wheezes, rales, or rhonchi. Breathing is nonlabored. Abdomen: Soft, nontender, nondistended. Extremities: No lower extremity edema. PIERRE hose. Psych: Alert and oriented. Procedures None Urinary Catheter: No Vascular Central Line Catheter: No A/P Assessment and Plan 1. Syncopal episode: Appreciate cardiology recommendations. Monitor on telemetry. Echocardiogram shows ejection fraction 55-60% with concentric left ventricular hypertrophy and mild aortic valve stenosis. Lisinopril on hold. 2. Atrial fibrillation: New onset. Appreciate cardiology recommendations. Continue low-dose metoprolol. Continue Cardizem. Started on Eliquis for anticoagulation by cardiology. 3. Hyperlipidemia: Continue gemfibrozil. 4. Coronary artery disease: Patient had stent placement in 2004. No chest pain. 5. DVT prophylaxis: Eliquis. Discharge Planning Plan for discharge home when cleared by cardiology. Jitendra Gray MD Aug 29, 2017 14:35
[2017-08-29 16:42] LABS: HEMOGLOBIN A1C 5.4 % (4.3-6.0)
[2017-08-30] VITALS: BP 126/67; PULSE 63; PULSE 72; RESP 20; TEMP 97.9; O2SAT 96
[2017-08-30 03:54] VITALS: PULSE 71
[2017-08-30 04:00] VITALS: BP 149/64; PULSE 74; RESP 19; TEMP 98.1; O2SAT 98
[2017-08-30] MEDS: GEMFIBROZIL 600 MG TAB PO SCH (06:36)
--- NOTE | 2017-08-30 07:33 | PD.CARD.PN ---
Subjective Subjective Remarks Pt without complaints Objective Medications Current Medications Medications (Trade) Dose Ordered Sig/Radha Route Start Time Stop Time Status Last Admin (Aspirin Chew) 81 mg BID CHEW 08/27/17 21:00 08/29/17 21:15 (Lopid) 600 mg BIDAC PO 08/27/17 16:00 08/30/17 06:36 (Oscal-D 250-125) 500 mg BID PO 08/27/17 21:00 08/29/17 21:15 (Vitamin D3) 1,000 units DAILY PO 08/28/17 09:00 08/29/17 09:16 Sodium Chloride 1,000 ml @ 75 mls/hr [id number] IV 08/27/17 15:00 08/29/17 21:16 (NS Flush) 2 ml UNSCH PRN IV FLUSH 08/27/17 14:45 (NS Flush) 2 ml BID IV FLUSH 08/27/17 21:00 08/29/17 09:20 (Tylenol) 650 mg Q4H PRN PO 08/27/17 14:45 (Zofran Inj) 4 mg Q6H PRN IVP 08/27/17 14:45 (Narcan Inj) 0.4 mg UNSCH PRN IV PUSH 08/27/17 14:45 (Senokot) 17.2 mg Q12H PRN PO 08/27/17 14:45 (Dulcolax Supp) 10 mg DAILY PRN RECTAL 08/27/17 14:45 (Lactulose Liq) 30 ml DAILY PRN PO 08/27/17 14:45 08/27/17 23:49 (Eliquis) 5 mg BID PO 08/27/17 21:00 08/29/17 21:16 (Lopressor) 12.5 mg Q12HR PO 08/27/17 21:00 08/29/17 21:15 (Pill Splitter) 1 ea UNSCH PRN OTHER 08/27/17 17:45 (Flomax) 0.4 mg Q12HR PO 08/28/17 10:45 08/29/17 21:15 (Cardizem) 60 mg QID PO 08/29/17 13:00 08/29/17 21:15 Vital Signs / I&O Vital Signs Date Time Temp Pulse Resp B/P (MAP) Pulse Ox O2 Delivery O2 Flow Rate FiO2 3/13/18 04:00 98.1 74 19 149/64 (92) 98 08/30/17 03:54 71 08/30/17 00:00 97.9 72 20 126/67 (86) 96 08/30/17 00:00 Room Air 08/30/17 00:00 63 08/29/17 20:56 21 08/29/17 20:00 84 08/29/17 20:00 Room Air 08/29/17 20:00 98.8 84 19 127/67 (87) 98 08/29/17 16:43 98.2 87 18 132/60 (84) 96 08/29/17 16:00 79 08/29/17 13:38 81 08/29/17 12:35 98.4 85 18 131/73 (92) 96 08/29/17 09:00 98.6 89 18 124/58 (80) 96 08/29/17 08:00 96 Room Air 21 08/29/17 08:00 90 I/O 08/29/17 08/29/17 08/29/17 08/30/17 08/30/17 08/30/17 06:59 14:59 22:59 06:59 14:59 22:59 Intake Total 400 ml 480 ml 1000 ml Output Total 1050 ml 550 ml 1000 ml 400 ml Balance -650 ml -70 ml 0 ml -400 ml Intake Oral 400 ml 480 ml IV Total 1000 ml Output Urine Total 1050 ml 550 ml 1000 ml 400 ml # Bowel Movements 0 0 0 Physical Exam GENERAL: Well developed, well nourished. No acute distress. HEENT: Jugular venous pressure is normal. CHEST: Lungs clear to auscultation bilaterally. Unlabored respiratory effort. CARDIAC: irregular rate and rhythm without S3, S4, or murmur. ABDOMEN: Soft, nontender, no hepatosplenomegaly. Bowel sounds present. EXTREMITIES: No clubbing, cyanosis, or edema. Imaging Last [address] 08/27/17 1132 Signed Impressions: Service Date/Time: Sunday, August 27, 2017 13:38 - CONCLUSION: No acute intracranial findings. Garo Maier MD Chest X-Ray 08/27/17 1132 Signed Impressions: Service Date/Time: Sunday, August 27, 2017 11:53 - CONCLUSION: No acute cardiopulmonary disease identified. Garo Maier MD Assessment and Plan Problem List: (1) Atrial fibrillation ICD Codes: I48.91 - Unspecified atrial fibrillation Plan: On eliquis, rate better yesterday -change to long acting (2) Syncopal episodes ICD Codes: R55 - Syncope and collapse Status: Acute Plan: no overt etiology on ECHO - Pt aware he should not drive by state law if he has passed out twice in 6 months Problem Qualifiers (1) Syncopal episodes: Qualified Codes: R55 - Syncope and collapse Deann Gilman MD Aug 30, 2017 07:33
[2017-08-30 08:00] VITALS: BP 158/72; PULSE 82; RESP 20; TEMP 98.4; O2SAT 98
[2017-08-30] MEDS: CALCIUM/VITAMIN D 250 MG/125 U TAB PO SCH (08:16)
[2017-08-30] MEDS: CHOLECALCIFEROL (VIT D3) 1000 UNIT TAB PO SCH (08:19)
[2017-08-30] MEDS: ASPIRIN 81 MG CHEW TAB CHEW SCH (08:19)
[2017-08-30] MEDS: TAMSULOSIN HCL 0.4 MG CAP PO SCH (08:20)
[2017-08-30] MEDS: APIXABAN 5 MG TABLET PO SCH (08:21)
[2017-08-30] MEDS: METOPROLOL TARTRATE 25 MG TAB PO SCH (08:22)
[2017-08-30] MEDS: SODIUM CHLORIDE 0.9% FLUSH 10 ML FLUSH IV FLUSH SCH (08:59)
[2017-08-30] MEDS ORDERED: DILTIAZEM-CD 240 MG CAP ER PO SCH (09:00)
[2017-08-30 09:26] LABS: HEMATOCRIT 29.5 % (39.0-51.0); HEMOGLOBIN 10.6 GM/DL (13.0-17.0); MEAN CELL VOLUME 86.1 FL (80.0-100.0); MEAN CORPUSCULAR HEMOGLOBIN 30.9 PG (27.0-34.0); MEAN CORPUSCULAR HGB CONC 35.9 % (32.0-36.0); MEAN PLATELET VOLUME 7.2 FL (7.0-11.0); PLATELET COUNT 260 TH/MM3 (150-450); RED BLOOD COUNT 3.43 MIL/MM3 (4.50-5.90); RED CELL DISTRIBUTION WIDTH 13.7 % (11.6-17.2); WHITE BLOOD COUNT 5.7 TH/MM3 (4.0-11.0)
[2017-08-30] MEDS: SODIUM CHLOR 0.9% 1000 ML INJ 1,000 ML IV SCH (09:33)
[2017-08-30 09:37] VITALS: O2SAT 98
[2017-08-30] MEDS ORDERED: METO25TA3 PO (10:08)
[2017-08-30] MEDS ORDERED: TAMS5CAP PO (10:08)
[2017-08-30] MEDS ORDERED: APIX5TAB PO (10:08)
[2017-08-30] MEDS ORDERED: DILT240C44 PO (10:08)
--- NOTE | 2017-08-30 10:08 | HHI.DCPOC ---
Discharge Care Plan Diagnosis: (1) Atrial fibrillation (2) Syncopal episodes (3) Hypertension Goals to Promote Your Health * To prevent worsening of your condition and complications * To maintain your health at the optimal level Directions to Meet Your Goals Take your medications as prescribed Follow your dietary instruction Follow activity as directed Keep your appointments as scheduled Take your immunizations and boosters as scheduled If your symptoms worsen call your PCP, if no PCP go to Urgent Care Center or Emergency Room Smoking is Dangerous to Your Health. Avoid second hand smoke Call the 24-hour hour crisis hotline for domestic abuse at Jitendra Gray MD Aug 30, 2017 10:08
--- NOTE | 2017-08-30 10:09 | HHI.FF ---
Face to Face Verification Diagnosis: (1) Hypertension (2) Atrial fibrillation (3) Syncopal episodes (4) Status post right hip replacement Physical Therapy Order: Evaluate and Treat Home Health Nursing Order: Nursing assessment with vital signs I have seen patient Garfield Roberts on 08/30/17. My clinical findings support the need for the requested home health care services because: High risk of falls I certify that my clinical findings support that this patient is homebound because: Unsteady gait/balance Jitendra Gray MD Aug 30, 2017 10:09
--- NOTE | 2017-08-30 10:14 | HHI.DS ---
Discharge Summary Admission Date Aug 27, 2017 at 14:30 Discharge Date: Aug 30, 2017 Admitting Diagnosis Syncopal Episode. (1) Syncopal episodes ICD Code: R55 - Syncope and collapse Status: Acute (2) Atrial fibrillation ICD Code: I48.91 - Unspecified atrial fibrillation (3) Hypertension ICD Code: I10 - Essential (primary) hypertension Procedures None Brief History - From Admission This is a pleasant 87 y/o male who came to ER status post syncopal episodes, Patient states that he went to the bathroom using his walker this morning to get cleaned up. He states that all of a sudden he felt overwhelmingly weak so he was able to get to the toilet where he sat down. His son came in and stated that he had a syncopal episode for approximately 10 seconds. He was trying to get his blood pressure before he passed out, but was unable to. He called 911 and the paramedics came. Upon arrival of paramedics, they sat him down in a chair where he had another syncopal episode. The patient had recent hip replacement surgery done on August 23, 2017. He states that he is not currently on any anticoagulants. He reports history of hypertension, hyperlipidemia, cardiac stent. Patient denies any headache. No fevers or chills. No chest pain or shortness of breath. No abdominal pain. No nausea, vomiting, diarrhea. He is currently on hydrocodone after having his hip replacement, but states he has only had 3 doses since having the surgery. Patient does complain of having constipation since the surgery. Patient denies any weakness at this time. No exacerbating or alleviating factors. Moderate severity. he is been evaluated in Emergency Room bed C 31 and at this time completely asymptomatic. CBC/BMP: 08/30/17 0837 08/28/17 0038 Significant Findings Laboratory Tests Test 08/27/17 11:45 08/27/17 11:50 08/27/17 19:17 08/28/17 00:38 Red Blood Count 3.55 MIL/MM3 (4.50-5.90) 3.25 MIL/MM3 (4.50-5.90) Hemoglobin 10.6 GM/DL (13.0-17.0) 9.8 GM/DL (13.0-17.0) Hematocrit 30.4 % (39.0-51.0) 27.7 % (39.0-51.0) Neutrophils (%) (Auto) 82.9 % (16.0-70.0) Lymphocytes (%) (Auto) 8.0 % (9.0-44.0) Neutrophils # (Auto) 7.9 TH/MM3 (1.8-7.7) Lymphocytes # (Auto) 0.8 TH/MM3 (1.0-4.8) Blood Urea Nitrogen 21 MG/DL (7-18) 19 MG/DL (7-18) Random Glucose 116 MG/DL (74-106) 111 MG/DL (74-106) Total Protein 6.3 GM/DL (6.4-8.2) Albumin 2.8 GM/DL (3.4-5.0) Estimat Glomerular Filtration Rate 56 ML/MIN (>89) 66 ML/MIN (>89) Troponin I LESS THAN 0.02 NG/ML Urine Occult Blood SMALL (NEG) Urine Leukocyte Esterase SMALL (NEG) Urine RBC 7 /hpf (0-3) Urine Mucus FEW /lpf (OCC) Monocytes (%) (Auto) 10.0 % (0.0-8.0) Carbon Dioxide Level 32.1 MEQ/L (21.0-32.0) Test 08/30/17 08:37 Red Blood Count 3.43 MIL/MM3 (4.50-5.90) Hemoglobin 10.6 GM/DL (13.0-17.0) Hematocrit 29.5 % (39.0-51.0) Imaging Last Impressions Head CT 08/27/17 1132 Signed Impressions: Service Date/Time: Sunday, August 27, 2017 13:38 - CONCLUSION: No acute intracranial findings. Garo Maier MD Chest X-Ray 08/27/17 1132 Signed Impressions: Service Date/Time: Sunday, August 27, 2017 11:53 - CONCLUSION: No acute cardiopulmonary disease identified. Garo Maier MD Carotid Artery Ultrasound 08/27/17 0000 Signed Impressions: Service Date/Time: Sunday, August 27, 2017 15:14 - CONCLUSION: No evidence of hemodynamically significant carotid stenosis. Garo Maier MD CT Angiography 08/27/17 0000 Signed Impressions: Service Date/Time: Sunday, August 27, 2017 13:43 - CONCLUSION: 1. No evidence of pulmonary embolus. 2. Mild basilar atelectasis. 3. Coronary artery calcification. 4. Small pericardial effusion. Garo Maier MD PE at Discharge General: Elderly male in no acute distress. Sitting up in a chair. Heart: Irregular rhythm. Lungs: Clear to auscultation bilaterally. No wheezes, rales, or rhonchi. Breathing is nonlabored. Abdomen: Soft, nontender, nondistended. Extremities: No lower extremity edema. PIERRE laineze. Psych: Alert and oriented. Pt update on day of discharge The patient has no complaints at this time. He states that he wants to go home. He denies lightheadedness, dizziness, chest pain, dyspnea. States that he ambulated well with physical therapy yesterday and did not have any symptoms during that activity. Hospital Course The patient was admitted for further evaluation of syncopal episode. He was maintained on cardiac telemetry. Cardiology was consulted. He was noted to have new onset atrial fibrillation. He was continued on metoprolol, but at a lower dose. He was started on Eliquis for anticoagulation. Cardizem was added to his medication regimen and his heart rate improved. He was cleared for discharge by cardiology. Physical therapy recommended home health. Pt Condition on Discharge: Stable Discharge Disposition: Disch w/ Home Health Serv Discharge Time: > 30 minutes Discharge Instructions DIET: Follow Instructions for: Heart Healthy Diet Activities you can perform: Regular-No Restrictions Activities to Avoid: Driving Follow up Referrals: Cardiology - 1 Week with Alexis Daniels MD Orthopedics - 1 Week with Frandy Tejeda MD PCP Follow-up - 09/02/17 with Marco Johnson M.d. Urology with Sedrick Rivera MD New Medications: Apixaban (Eliquis) 5 Mg Tab 5 MG PO BID for Blood Clot Prevention, #60 TAB 0 Refills Diltiazem CD 24 HR (Diltiazem CD 24 HR) 240 Mg Caper 240 MG PO DAILY for Heart rate control, #30 CAP 0 Refills Metoprolol Tartrate (Metoprolol Tartrate) 25 Mg Tab 12.5 MG PO Q12HR for Blood Pressure Management, #60 TAB 0 Refills Tamsulosin (Flomax) 0.4 Mg Cap 0.4 MG PO Q12HR for Urinary retention, #60 CAP Continued Medications: Acetaminophen (Tylenol Extra Strength) 500 Mg Tablet 1 TAB PO Q8HR PRN for PAIN SCALE 1 TO 10 Aspirin (Aspirin 81 Low Dose) 81 Mg Chew 81 MG CHEW BID for Blood Clot Prevention, #60 TAB Calcium Carbonate-Vitamin D (Calcium 600+D 200) 600-200 Mg-Unit Tab 1 TAB PO BID for Nutritional Supplement, #90 TAB 0 Refills Fish Oil-Cholecalciferol (Fish Oil + D3) 1,200-1,000 Mg-Unit Cap 1 CAP PO DAILY for Nutritional Supplement, #30 CAP 0 Refills Gemfibrozil (Gemfibrozil) 600 Mg Tab 600 MG PO BIDAC for LIPIDS, #60 TAB 0 Refills Take 30 minutes prior to breakfast and dinner. Hydrocodone-Acetaminophen (Hydrocodone-Acetaminophen) 10-325 mg Tab 1 TAB PO Q4H PRN for PAIN, #60 TAB 0 Refills Discontinued Medications: Lisinopril (Lisinopril) 20 Mg Tab 20 MG PO BID, #30 TAB 0 Refills Metoprolol Tartrate (Metoprolol Tartrate) 25 Mg Tab 25 MG PO BID for Blood Pressure Management, #60 TAB 0 Refills Jitendra Gray MD Aug 30, 2017 10:13
[2017-08-30 12:00] VITALS: BP 125/60; PULSE 75; RESP 20; TEMP 97.3; O2SAT 100
== END 2017-08-30 14:28 | disposition home health service (06) | DRG 310 ==
LOC: NEPC 09:52 → NEDA 14:30 → OBSVTOIN 14:44 → N04B 18:26
PROVIDERS: ADMIT Family Medicine; ATTEND Family Medicine
DX: I48.91 Unspecified atrial fibrillation (principal); D64.9 Anemia, unspecified; I35.0 Nonrheumatic aortic (valve) stenosis; I10 Essential (primary) hypertension; I48.92 Unspecified atrial flutter; E78.5 Hyperlipidemia, unspecified; E04.1 Nontoxic single thyroid nodule; R55 Syncope and collapse; I25.10 Atherosclerotic heart disease of native coronary artery without angina pectoris; N40.0 Benign prostatic hyperplasia without lower urinary tract symptoms; Z96.641 Presence of right artificial hip joint; R00.0 Tachycardia, unspecified; Z95.5 Presence of coronary angioplasty implant and graft; Z79.82 Long term (current) use of aspirin
CPT/HCPCS: 70450; 71045; 71275; 80048; 80053; 80061; 81001; 82550; 82552; 82607; 82746; 82948; 83036; 83735; 84439; 84443; 84484; 85025; 85027; 85610; 85730; 93005; 93306; 93880; 96360; 96361; G8987-GP; G8988-GP; J1644; J7030; J7040; Q9967

== ENCOUNTER 2017-09-11 16:56 | Emergency (ER) | payer MEDICARE, OTHER ==
[~2017-09-11] VITALS: Ht 170.2 cm; Wt 76.0 kg
[~2017-09-11 16:56] MED LIST changes: +APIX5TAB PO; -COMMODE 3-IN-11 MIS; +DILT240C44 PO; -LISI-515 PO; -SAW450CA2 PO; -WALKER/ADULT/FO1 MIS
[2017-09-11 17:00] VITALS: BP 140/63; PULSE 98; RESP 16; TEMP 99.8; O2SAT 96
--- NOTE | 2017-09-11 17:37 | PD ---
HPI Chief Complaint: Complaint Time Seen by Provider: 17:21 Travel History International Travel<30 days: No Contact w/Intl Traveler<30days: No Traveled to known affect area: No History of Present Illness HPI 87yo M with PMH of HTN, HLD, CAD sp stent, afib on eliquis here with c/o lower abdominal pain since Dr. Rivera removed his mcmahon catheter 2 days ago. Pt said it feels like spasms and it is worst with urination. Pt also had fever yesterday. Denies any chest pain, sob, n/v, dysuria, hematuria, diarrhea, focal weakness or numbness. 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) Tetanus Vaccination: < 5 Years Influenza Vaccination: Yes Past Surgical History Body Medical Devices: STENT IN HEART X1 Cardiac Surgery: Yes (ANGIOPLASTY X 2, STENT 05') Eye Surgery: Yes (CATARACT RIGHT EYE) Oral Surgery: No Other Surgery: Yes Social History Alcohol Use: No Tobacco Use: No Substance Use: No Allergies-Medications (Allergen,Severity, Reaction): Coded Allergies: codeine (Verified Allergy, Severe, 09/11/17) tadalafil (Verified Allergy, Intermediate, facial redness, 09/11/17) Reported Meds & Prescriptions Reported Meds & Active Scripts Active Eliquis (Apixaban) 5 Mg Tab 5 Mg PO BID Diltiazem CD 24 HR 240 Mg Caper 240 Mg PO DAILY Metoprolol Tartrate 25 Mg Tab 12.5 Mg PO Q12HR Flomax (Tamsulosin HCl) 0.4 Mg Cap 0.4 Mg PO Q12HR Calcium 600+D 200 (Calcium Carbonate-Vitamin D) 600-200 Mg-Unit Tab 1 Tab PO BID Aspirin 81 Low Dose (Aspirin) 81 Mg Chew 81 Mg CHEW BID Hydrocodone-Acetaminophen 10-325 mg Tab 1 Tab PO Q4H PRN Reported Tylenol Extra Strength (Acetaminophen) 500 Mg Tablet 1 Tab PO Q8HR PRN Gemfibrozil 600 Mg Tab 600 Mg PO BIDAC Take 30 minutes prior to breakfast and dinner. Fish Oil + D3 (Fish Oil-Cholecalciferol) 1,200-1,000 Mg-Unit Cap 1 Cap PO DAILY Review of Systems Except as stated in HPI: all other systems reviewed are Neg Physical Exam Narrative GENERAL: 87yo M in mild distress. SKIN: Focused skin assessment warm/dry. HEAD: Atraumatic. Normocephalic. EYES: Pupils equal and round. No scleral icterus. No injection or drainage. CARDIOVASCULAR: Regular rate and rhythm. No murmur appreciated. RESPIRATORY: No accessory muscle use. Clear to auscultation. Breath sounds equal bilaterally. GASTROINTESTINAL: Abdomen soft, +TTP suprapubic region > right flank. No rebound tenderness or guarding. MUSCULOSKELETAL: No obvious deformities. No clubbing. No cyanosis. No edema. NEUROLOGICAL: Awake and alert. No obvious cranial nerve deficits. Motor grossly within normal limits. Normal speech. PSYCHIATRIC: Appropriate mood and affect; insight and judgment normal. Data Data Last Documented VS Vital Signs Date Time Temp Pulse Resp B/P (MAP) Pulse Ox O2 Delivery O2 Flow Rate FiO2 09/11/17 19:04 84 20 116/64 (81) 95 09/11/17 17:00 99.8 Orders Orders Basic Metabolic Panel (Bmp) (09/11/17 17:29) Complete Blood Count With Diff (09/11/17 17:29) Urinalysis - C+S If Indicated (09/11/17 17:29) Ct Abd/Pel W Iv Contrast(Rout) (09/11/17 17:29) Urine Culture (09/11/17 17:40) Ceftriaxone Inj (Rocephin Inj) (09/11/17 18:45) Iohexol 350 Inj (Omnipaque 350 Inj) (09/11/17 18:40) Labs Laboratory Tests Test 09/11/17 17:40 White Blood Count 18.5 TH/MM3 Red Blood Count 4.04 MIL/MM3 Hemoglobin 11.8 GM/DL Hematocrit 35.7 % Mean Corpuscular Volume 88.3 FL Mean Corpuscular Hemoglobin 29.3 PG Mean Corpuscular Hemoglobin Concent 33.2 % Red Cell Distribution Width 14.8 % Platelet Count 345 TH/MM3 Mean Platelet Volume 7.5 FL Neutrophils (%) (Auto) 84.0 % Lymphocytes (%) (Auto) 6.0 % Monocytes (%) (Auto) 6.4 % Eosinophils (%) (Auto) 0.1 % Basophils (%) (Auto) 3.5 % Neutrophils # (Auto) 15.6 TH/MM3 Lymphocytes # (Auto) 1.1 TH/MM3 Monocytes # (Auto) 1.2 TH/MM3 Eosinophils # (Auto) 0.0 TH/MM3 Basophils # (Auto) 0.6 TH/MM3 CBC Comment DIFF FINAL Differential Comment Urine Collection Type CLEAN CATCH Urine Color YELLOW Urine Turbidity CLOUDY Urine pH 6.0 Urine Specific [place] GREATER/EQUAL 1.030 Urine Protein 100 mg/dL Urine Glucose (UA) NEG mg/dL Urine Ketones TRACE mg/dL Urine Occult Blood MOD Urine Nitrite POS Urine Bilirubin NEG Urine Urobilinogen 0.2 MG/DL Urine Leukocyte Esterase MOD Urine RBC 0-3 /hpf Urine WBC INNUM /hpf Urine Squamous Epithelial Cells 0-5 /hpf Urine Bacteria MOD /hpf Microscopic Urinalysis Comment CULTURE INDICATED Blood Urea Nitrogen 18 MG/DL Creatinine 1.20 MG/DL Random Glucose 129 MG/DL Calcium Level 8.8 MG/DL Sodium Level 131 MEQ/L Potassium Level 4.2 MEQ/L Chloride Level 96 MEQ/L Carbon Dioxide Level 26.7 MEQ/L Anion Gap 8 MEQ/L Estimat Glomerular Filtration Rate 58 ML/MIN [facility] Medical Decision Making Medical Screen Exam Complete: Yes Emergency Medical Condition: Yes Differential Diagnosis Cystitis vs. nephrolithiasis vs. colitis Narrative Course 87yo M with bladder spasm since mcmahon removal 2 days ago. Said he had mcmahon place because he had hip surgery and then was not able to urinate. Pt is able to urinate now. Labs reviewed, leukocytosis at 18,500. H/H 11.8/35.7 which is at baseline. Mild hyponatremia at 131. Creatinine normal at 1.20. UA showed moderate blood. Positive nitrite. CT a/p showed colonic diverticula without inflammation. Prostate enlargement. No acute findings. Pt is well appearing and tolerating PO. He wants to try outpatient treatment first. Pt does not want anything for pain now because it comes and goes. Return precautions given. Diagnosis Primary Impression: UTI (urinary tract infection) Qualified Codes: N39.0 - Urinary tract infection, site not specified; R31.9 - Hematuria, unspecified Patient Instructions: General Instructions Departure Forms: Tests/Procedures Additional Instructions: Please follow up with Dr. Rivera as outpatient. Please return to the ED if symptoms worsen. Please take pyridium with food and it may cause darkening of urine and orange urine. Med/Other Pt SpecificInfo: Prescription(s) given Scripts Sulfamethoxazole-Trimethoprim (Bactrim DS) 800-160 Mg Tab 1 TAB PO BID for Infection, #20 TAB 0 Refills Prov: Vi Ochoa DO 09/11/17 Phenazopyridine (Pyridium) 100 Mg Tab 100 MG PO Q8H Y for DYSURIA for 2 Days, #6 TAB 0 Refills Prov: Vi Ocoha DO 09/11/17 Disposition: 01 DISCHARGE HOME Condition: Stable Vi Ochoa DO Sep 11, 2017 17:37
[2017-09-11 17:53] LABS: AUTOMATED NEUTROPHIL # 15.6 TH/MM3 (1.8-7.7); BASOPHIL # 0.6 TH/MM3 (0-0.2); BASOPHIL % 3.5 % (0.0-2.0); EOSINOPHIL % 0.1 % (0.0-4.0); HEMATOCRIT 35.7 % (39.0-51.0); HEMOGLOBIN 11.8 GM/DL (13.0-17.0); LYMPHOCYTE # 1.1 TH/MM3 (1.0-4.8); MEAN CELL VOLUME 88.3 FL (80.0-100.0); MEAN CORPUSCULAR HEMOGLOBIN 29.3 PG (27.0-34.0); MEAN CORPUSCULAR HGB CONC 33.2 % (32.0-36.0); MEAN PLATELET VOLUME 7.5 FL (7.0-11.0); MONO % 6.4 % (0.0-8.0); MONOCYTE # 1.2 TH/MM3 (0-0.9); PLATELET COUNT 345 TH/MM3 (150-450); RED BLOOD COUNT 4.04 MIL/MM3 (4.50-5.90); RED CELL DISTRIBUTION WIDTH 14.8 % (11.6-17.2); WHITE BLOOD COUNT 18.5 TH/MM3 (4.0-11.0)
[2017-09-11 18:04] LABS: BLOOD, URINE MOD (NEG); GLUCOSE,URINE NEG (NEG); KETONE, URINE TRACE mg/dL (NEG); NITRITE,URINE POS (NEG); URINE COLOR YELLOW (YELLW/STRAW); URINE LEUKOCYTE ESTERASE MOD (NEG)
[2017-09-11 18:07] LABS: CALCIUM 8.8 MG/DL (8.5-10.1)
[2017-09-11 18:08] LABS: BICARBONATE 26.7 MEQ/L (21.0-32.0)
[2017-09-11 18:09] LABS: BILIRUBIN, URINE NEG (NEG)
[2017-09-11 18:11] LABS: CREATININE 1.2 MG/DL (0.60-1.30)
[2017-09-11 18:13] LABS: BACTERIA, URINE MOD /hpf; RBC, URINE 0-3 /hpf (0-3); SQUAMOUS EPITHELIAL CELL URINE 0-5 /hpf (0-5); WBC, URINE INNUM /hpf (0-5)
[2017-09-11] MEDS ORDERED: IOHEXOL 350 MG/ML 10 ML VIAL (for RAD DIAG) IVCONTRAST ONE (18:40)
[2017-09-11] MEDS ORDERED: cefTRIAXone INJ 1,000 MG in SODIUM CHLORIDE 0.9% INJ 100 ML IV ONE (18:45)
--- NOTE | 2017-09-11 18:53 | RADRPT ---
EXAM DATE/TIME: 09/11/2017 18:35 [place] COMPARISON: No previous studies available for comparison. INDICATIONS : Lower abdominal pain. IV CONTRAST: 90 cc Omnipaque 350 (iohexol) IV ORAL CONTRAST: No oral contrast ingested. RADIATION DOSE: 13.75 CTDIvol (mGy) MEDICAL HISTORY : Cardiovascular disease. Hypertension. Anticoagulant therapy. SURGICAL HISTORY : Coronary artery stent. Right hip replacement. ENCOUNTER: Initial ACUITY: 2 days PAIN SCALE: 4/10 LOCATION: suprapubic TECHNIQUE: Volumetric scanning of the abdomen and pelvis was performed. Using automated exposure control and ad justment of the mA and/or kV according to patient size, radiation dose was kept as low as reasonably achievable to obtain optimal diagnostic quality images. DICOM format image data is available electro nically for review and comparison. FINDINGS: LOWER LUNGS: There is minimal suspected atelectasis at the lung bases. There is mild amount of pericardial fluid s een. LIVER: Homogeneous density without lesion. There is no dilation of the biliary tree. There are several calc ified gallstones. SPLEEN: Normal size without lesion. PANCREAS: Within normal limits. KIDNEYS: Normal in size and shape. There is no mass, stone or hydronephrosis. ADRENAL GLANDS: Within normal limits. VASCULAR: Atherosclerotic changes seen throughout the arterial system. BOWEL/MESENTERY: There are colonic diverticula in the descending and sigmoid portions of the colon. ABDOMINAL WALL: Within normal limits. RETROPERITONEUM: There is no lymphadenopathy. BLADDER: No wall thickening or mass. REPRODUCTIVE: The prostate is enlarged. INGUINAL: There is no lymphadenopathy or hernia. MUSCULOSKELETAL: There is degenerative change of the lumbar spine. There is a right hip prosthesis in place. There is degenerative change of the left hip joint. CONCLUSION: 1. Colonic diverticula significant surrounding inflammatory change is not seen. 2. Prostatic enlargement. 3. Degenerative change in lumbar spine and at the left hip. 4. Atherosclerotic changes of the arterial system. 5. Calcified gallstones. 6. Mild suspected atelectasis at the lung bases. 7. Mild amount of pericardial fluid. Yong Craig MD on September 11, 2017 at 18:46 Board Certified Radiologist. This report was verified electronically.
[2017-09-11 19:04] VITALS: BP 116/64; PULSE 84; RESP 20; O2SAT 95
[2017-09-11] MEDS ORDERED: PHEN0.4T PO (19:34)
[2017-09-11] MEDS ORDERED: BACT800T5 PO (19:34)
[2017-09-11 20:00] VITALS: BP 118/68
== END 2017-09-11 19:50 | disposition home or self-care (01) ==
LOC: PHED 16:56
DX: N39.0 Urinary tract infection, site not specified (principal); D72.829 Elevated white blood cell count, unspecified; B96.89 Other specified bacterial agents as the cause of diseases classified elsewhere; K80.80 Other cholelithiasis without obstruction; J98.11 Atelectasis; I48.91 Unspecified atrial fibrillation; E87.1 Hypo-osmolality and hyponatremia; N40.0 Benign prostatic hyperplasia without lower urinary tract symptoms; I25.10 Atherosclerotic heart disease of native coronary artery without angina pectoris
CPT/HCPCS: 74177; 80048; 81001; 85025; 87077; 87086; 87186; 96374; 99285; J0696; Q9967

== ENCOUNTER 2017-09-13 22:19 | Emergency (ER) | payer OTHER ==
[~2017-09-13] VITALS: Ht 170.2 cm; Wt 76.6 kg
[~2017-09-13 22:19] MED LIST changes: +BACT800T5 PO; +PHEN0.4T PO
[2017-09-13 22:23] VITALS: BP 115/55; PULSE 80; RESP 18; TEMP 98.6; O2SAT 97
--- NOTE | 2017-09-13 22:39 | PD ---
HPI Chief Complaint: Complaint Time Seen by Provider: 22:37 Travel History International Travel<30 days: No Contact w/Intl Traveler<30days: No Traveled to known affect area: No History of Present Illness HPI The patient is an 87-year-old male that had hip surgery weeks ago. He could not urinate after the hip surgery so they put in a Israel catheter. 4 days ago he got the catheter out. He has been having problems urinating since they took the catheter out. Today he saw Dr. bernabe's nurse and was able to urinate and felt pretty good after he urinated. Since then he has had a bladder discomfort/ pressure feeling of 10/10. He states the discomfort is severe. The patient continues to take the Flomax. 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) Past Surgical History Body Medical Devices: STENT IN HEART X1 Cardiac Surgery: Yes (ANGIOPLASTY X 2, STENT 05') Eye Surgery: Yes (CATARACT RIGHT EYE) Oral Surgery: No Other Surgery: Yes Social History Alcohol Use: No Tobacco Use: No Substance Use: No Allergies-Medications (Allergen,Severity, Reaction): Coded Allergies: codeine (Verified Allergy, Severe, 09/11/17) tadalafil (Verified Allergy, Intermediate, facial redness, 09/11/17) Reported Meds & Prescriptions Reported Meds & Active Scripts Active Bactrim DS (Sulfamethoxazole-Trimethoprim) 800-160 Mg Tab 1 Tab PO BID Pyridium (Phenazopyridine HCl) 100 Mg Tab 100 Mg PO Q8H PRN 2 Days Eliquis (Apixaban) 5 Mg Tab 5 Mg PO BID Diltiazem CD 24 HR 240 Mg Caper 240 Mg PO DAILY Metoprolol Tartrate 25 Mg Tab 12.5 Mg PO Q12HR Flomax (Tamsulosin HCl) 0.4 Mg Cap 0.4 Mg PO Q12HR Calcium 600+D 200 (Calcium Carbonate-Vitamin D) 600-200 Mg-Unit Tab 1 Tab PO BID Aspirin 81 Low Dose (Aspirin) 81 Mg Chew 81 Mg CHEW BID Hydrocodone-Acetaminophen 10-325 mg Tab 1 Tab PO Q4H PRN Reported Tylenol Extra Strength (Acetaminophen) 500 Mg Tablet 1 Tab PO Q8HR PRN Gemfibrozil 600 Mg Tab 600 Mg PO BIDAC Take 30 minutes prior to breakfast and dinner. Fish Oil + D3 (Fish Oil-Cholecalciferol) 1,200-1,000 Mg-Unit Cap 1 Cap PO DAILY Review of Systems Except as stated in HPI: all other systems reviewed are Neg Physical Exam Narrative GENERAL: The patient is alert, oriented 3 in moderate to severe distress with his bladder discomfort. His vital signs are normal. SKIN: Focused skin assessment warm/dry. HEAD: Atraumatic. Normocephalic. EYES: Pupils equal and round. No scleral icterus. No injection or drainage. ENT: No nasal bleeding or discharge. Mucous membranes pink and moist. NECK: Trachea midline. No JVD. CARDIOVASCULAR: Regular rate and rhythm. No murmur appreciated. RESPIRATORY: No accessory muscle use. Clear to auscultation. Breath sounds equal bilaterally. GASTROINTESTINAL: Abdomen soft, non-tender, however the bladder is distended and very sensitive to the touch, slight pressure on the bladder makes the patient feel like the bladder will "explode". Hepatic and splenic margins not palpable. MUSCULOSKELETAL: No obvious deformities. No clubbing. No cyanosis. No edema. NEUROLOGICAL: Awake and alert. No obvious cranial nerve deficits. Motor grossly within normal limits. Normal speech. PSYCHIATRIC: Appropriate mood and affect; insight and judgment normal. Data Data Last Documented VS Vital Signs Date Time Temp Pulse Resp B/P (MAP) Pulse Ox O2 Delivery O2 Flow Rate FiO2 09/13/17 22:42 18 09/13/17 22:23 98.6 80 115/55 (75) 97 Orders Orders Urinary Catheter Insert/Apply (09/13/17 22:42) Complete Blood Count With Diff (09/13/17 22:43) Basic Metabolic Panel (Bmp) (09/13/17 22:43) Urinalysis - C+S If Indicated (09/13/17 22:43) [facility] Medical Decision Making Medical Screen Exam Complete: Yes Emergency Medical Condition: Yes Medical Record Reviewed: Yes Differential Diagnosis Atonic bladder, benign prostatic hypertrophy with urethral obstruction, urinary tract infection, electrolyte disorder, renal insufficiency Narrative Course After the Israel catheter was put in, 800 cc of dark urine was obtained. The patient got tremendous relief with this. Impression: Prostatic urethral obstruction. Plan: Dr. chao was called, Dr. Michel was covering at this hour. Diagnosis Primary Impression: Urethral obstruction Additional Instructions: As we discussed, follow-up with Dr. chao. Call his office tomorrow and tell them that you had severe discomfort, 800 cc was recovered from your bladder and you have a Israel catheter. Med/Other Pt SpecificInfo: No Change to Meds Disposition: 01 DISCHARGE HOME Condition: Stable Venu Meyer MD Sep 13, 2017 22:39
[2017-09-13 23:25] LABS: AUTOMATED NEUTROPHIL # 6.3 TH/MM3 (1.8-7.7); BASOPHIL % 0.4 % (0.0-2.0); EOSINOPHIL # 0.1 TH/MM3 (0-0.4); EOSINOPHIL % 0.9 % (0.0-4.0); HEMATOCRIT 34.2 % (39.0-51.0); HEMOGLOBIN 11.4 GM/DL (13.0-17.0); LYMPH % 10.7 % (9.0-44.0); LYMPHOCYTE # 0.9 TH/MM3 (1.0-4.8); MEAN CELL VOLUME 87.2 FL (80.0-100.0); MEAN CORPUSCULAR HEMOGLOBIN 29.1 PG (27.0-34.0); MEAN CORPUSCULAR HGB CONC 33.4 % (32.0-36.0); MEAN PLATELET VOLUME 7.1 FL (7.0-11.0); MONO % 9.3 % (0.0-8.0); MONOCYTE # 0.8 TH/MM3 (0-0.9); NEUT % 78.7 % (16.0-70.0); PLATELET COUNT 382 TH/MM3 (150-450); RED BLOOD COUNT 3.92 MIL/MM3 (4.50-5.90); RED CELL DISTRIBUTION WIDTH 14.8 % (11.6-17.2); WHITE BLOOD COUNT 8.1 TH/MM3 (4.0-11.0)
[2017-09-13 23:31] VITALS: BP 135/65; PULSE 82; RESP 16; O2SAT 95
[2017-09-13 23:35] LABS: BILIRUBIN, URINE NEG (NEG); BLOOD, URINE TRACE (NEG); GLUCOSE,URINE 100 mg/dL (NEG); KETONE, URINE NEG (NEG); NITRITE,URINE POS (NEG); PH, URINE 6.5 (5.0-8.5); URINE COLOR YELLOW (YELLW/STRAW); URINE LEUKOCYTE ESTERASE NEG (NEG)
[2017-09-13 23:39] LABS: CALCIUM 8.7 MG/DL (8.5-10.1)
[2017-09-13 23:41] LABS: HYALINE CAST, URINE 0-2 /lpf (RARE); MUCUS URINE OCC /lpf (OCC); RBC, URINE 0-3 /hpf (0-3); SQUAMOUS EPITHELIAL CELL URINE 0-5 /hpf (0-5); WBC, URINE 0-2 /hpf (0-5)
[2017-09-13 23:43] LABS: CREATININE 1.6 MG/DL (0.60-1.30)
== END 2017-09-14 00:17 | disposition home or self-care (01) ==
LOC: PHED 22:19
DX: N36.8 Other specified disorders of urethra (principal); N40.1 Benign prostatic hyperplasia with lower urinary tract symptoms; R33.8 Other retention of urine; E78.00 Pure hypercholesterolemia, unspecified; I25.10 Atherosclerotic heart disease of native coronary artery without angina pectoris; I10 Essential (primary) hypertension; Z79.82 Long term (current) use of aspirin; Z95.5 Presence of coronary angioplasty implant and graft
CPT/HCPCS: 51702; 80048; 81001; 85025; 87086